=== PATIENT | male | born 1935 | race Caucasian/White ===

== ENCOUNTER 2017-07-13 11:03 | Outpatient (CLI) | payer MEDICARE, BC ==
[~2017-07-13 11:03] MED LIST: ASP325T PO; ASP81CT PO; ASPI1CPM PO; ATOR20TA66; ATR20T PO; CYAN10007 PO; FLAX100031 PO; LISINOPRIL; MULT-608 PO; SIMV5TAB6 PO
== END 2017-07-13 11:30 | disposition home or self-care (01) ==
LOC: SLEEP 11:03
PROVIDERS: ATTEND Otolaryngology Otolaryngology/Facial Plastic Surgery
DX: G47.33 Obstructive sleep apnea (adult) (pediatric) (principal); G47.10 Hypersomnia, unspecified; R06.83 Snoring

== ENCOUNTER 2017-09-16 13:34 | Inpatient (IN) | payer MEDICARE, BC ==
[2017-09-16] VITALS (9 sets, daily range): BP systolic 147–165; BP diastolic 55–72
[~2017-09-16] VITALS: Ht 170.2 cm; Wt 83.0 kg
[~2017-09-16 13:34] MED LIST changes: -ASPI-808 PO; -ATOR20TA66 PO; -FURO-125 PO; -MULT1CAP27 PO; -PANT40TA2 PO
[2017-09-16 14:09] LABS: BASOPHILS % (AUTO) 1 % (0-10); EOSINOPHILS # (AUTO) 0.1 10^3/uL (0.0-0.3); EOSINOPHILS % (AUTO) 1 % (0-10); LYMPHOCYTES # (AUTO) 0.8 X 10^3 (1.0-4.0); LYMPHOCYTES % (AUTO) 19 % (12-44); MEAN CORPUSCULAR HEMOGLOBIN 16 PG (25-34); MEAN CORPUSCULAR HGB CONC 24 G/DL (32-36); MEAN CORPUSCULAR VOLUME 68 FL (80-99); MONOCYTES # (AUTO) 0.5 X 10^3 (0.0-1.0); MONOCYTES % (AUTO) 11 % (0-12); NEUTROPHILS % (AUTO) 69 % (42-75); PLATELET COUNT 204 10^3/uL (130-400); RED BLOOD COUNT 2.92 10^6/uL (4.35-5.85); RED CELL DISTRIBUTION WIDTH 20.2 % (10.0-14.5); WHITE BLOOD COUNT 4.3 10^3/uL (4.3-11.0)
[2017-09-16] MEDS ORDERED: FUROSEMIDE 40 MG/4 ML INJ (LASIX) IVP ONE (14:15)
[2017-09-16 14:21] LABS: ALANINE AMINOTRANSFERASE 13 U/L (0-55); ALBUMIN 3.6 GM/DL (3.2-4.5); ALKALINE PHOSPHATASE 85 U/L (40-136); BILIRUBIN,TOTAL 1.3 MG/DL (0.1-1.0); BUN/CREATININE RATIO 16; CALCIUM 8.4 MG/DL (8.5-10.1); CARBON DIOXIDE 26 MMOL/L (21-32); CHLORIDE 105 MMOL/L (98-107); CREATININE SERUM 0.83 MG/DL (0.60-1.30); GFR ESTIMATED > 60; GLUCOSE 114 MG/DL (70-105); HEMATOCRIT 20 % (40-54); HEMOGLOBIN 4.7 G/DL (13.3-17.7); MAGNESIUM 2.1 MG/DL (1.8-2.4); POTASSIUM 4.2 MMOL/L (3.6-5.0); SODIUM 137 MMOL/L (135-145); TOTAL PROTEIN 6.2 GM/DL (6.4-8.2)
[2017-09-16 15:03] LABS: BASOPHILS % (AUTO) 1 % (0-10); EOSINOPHILS # (AUTO) 0.1 10^3/uL (0.0-0.3); EOSINOPHILS % (AUTO) 1 % (0-10); LYMPHOCYTES # (AUTO) 0.8 X 10^3 (1.0-4.0); LYMPHOCYTES % (AUTO) 19 % (12-44); MEAN CORPUSCULAR HEMOGLOBIN 16 PG (25-34); MEAN CORPUSCULAR HGB CONC 24 G/DL (32-36); MEAN CORPUSCULAR VOLUME 68 FL (80-99); MONOCYTES # (AUTO) 0.5 X 10^3 (0.0-1.0); MONOCYTES % (AUTO) 11 % (0-12); NEUTROPHILS % (AUTO) 69 % (42-75); PLATELET COUNT 204 10^3/uL (130-400); RED BLOOD COUNT 2.92 10^6/uL (4.35-5.85); RED CELL DISTRIBUTION WIDTH 20.2 % (10.0-14.5); WHITE BLOOD COUNT 4.3 10^3/uL (4.3-11.0)
[2017-09-16 15:04] LABS: HEMATOCRIT 20 % (40-54); HEMOGLOBIN 4.7 G/DL (13.3-17.7); RETICULOCYTE % 1.35 % (0.50-2.40)
[2017-09-16 15:05] LABS: ABSOLUTE RETIC # 38 10e9/L (24-90)
[2017-09-16 15:08] LABS: ANISOCYTOSIS SLIGHT; BAND NEUTROPHILS 0 %; BASOPHILS % (MANUAL) 1 %; ELLIPT/OVALOCYTES SLIGHT; EOSINOPHILS % (MANUAL) 3 %; HYPOCHROMASIA MARKED; LYMPHOCYTES % (MANUAL) 22 %; MICROCYTOSIS MODERATE; MONOCYTES % (MANUAL) 3 %; NEUTROPHILS % (MANUAL) 71 %
--- NOTE | 2017-09-16 15:19 | Consultation-Cardiology ---
HPI-Cardiology Cardiology Consultation Date of Consultation 09/16/17 Date of Admission Time Seen by Provider: 15:14 Indication: Short of breath, edema HPI 81 years old gentleman with history of hypertension, hyperlipidemia and TIA. Has been having worsening pedal edema and shortness of breath which has been progressive over the past 2 days. Had an echocardiogram done earlier today then went straight to the emergency room for evaluation for anasarca, significant edema and shortness of breath. Denied any chest pain. Denied any palpitation, syncope or near syncopal episode, he was noted to be severely anemic. Does not recall having diarrhea or black tarry stool or hematemesis Home Medications & Allergies Allergies: Coded Allergies: NKANo Known Allergies (Verified Allergy, Unknown, 08/31/05) Home Medication List Reviewed: Yes ULM-[id number]-Vpttvu Hx Patient Social History Marital Status: Employed/Student: retired Alcohol Use: Denies Use Recreational Drug Use: No Smoking Status: Never a Smoker Recent Foreign Travel: No Recent Infectious Disease Expo: No Recent Hopitalizations: Yes (CAROTID SURG) Immunizations Up To Date Date of Pneumonia Vaccine: May 17, 2009 Date of Influenza Vaccine: Mar 17, 2013 Past Medical History Past medical history as discussed below Family Medical History Significant Family History: No Pertinent Family Hx Family History: Alcoholism 03 FATHER 09 BROTHER Cancer 03 MOTHER Cataract 03 FATHER 03 MOTHER 09 BROTHER 09 SISTER 09 SISTER Chest pain 03 FATHER Family history: Arthritis 03 FATHER Family history: Glaucoma 03 MOTHER Heart disease 03 FATHER Hypercholesterolemia 09 BROTHER Kidney disease 03 FATHER No Family History of: Abdominal aortic aneurysm [place]'s disease Aphasia Cancer of colon Congenital heart disease Congestive heart failure Cystic fibrosis Dementia Dysphagia Family history: Allergy Family history: Alzheimer's disease Family history: Asthma Family history: Breast disease Family history: Cardiovascular disease Family history: Coronary thrombosis Family history: Diabetes mellitus Family history: Gastrointestinal disease Family history: Hypertension Family history: Osteoporosis Family history: Thyroid disorder Headache Hearing loss Hereditary disease History of - anemia History of - disorder History of - respiratory disease History of drug abuse Human immunodeficiency virus (HIV) seropositivity Infertile Malignant neoplasm of lung Myocardial infarction Parkinson's disease Prostate cancer Psychotic disorder Seizure disorder Stroke Tuberculosis Visual impairment Constitutional: see HPI, dizziness, malaise, weakness EENTM: see HPI, no symptoms reported Respiratory: see HPI, dyspnea on exertion, orthopnea, short of breath, wheezing Cardiovascular: see HPI; No chest pain; edema; No Hx of Intervention, No palpitations, No syncope, No vascular heart diseas, No other Gastrointestinal: see HPI, other (Increasing abdominal distention) Genitourinary: see HPI, decreased output Musculoskeletal: no symptoms reported, see HPI Skin: no symptoms reported, see HPI Psychiatric/Neurological: No Symptoms Reported, See HPI Reviewed Test Results Reviewed Test Results Lab Laboratory Tests Test 09/16/17 13:49 09/16/17 14:45 Range/Units White Blood Count 4.3 4.3 4.3-11.0 10^3/uL Red Blood Count 2.92 L 2.92 L 4.35-5.85 10^6/uL Hemoglobin 4.7 *L 4.7 *L 13.3-17.7 G/DL Hematocrit 20 *L 20 *L 40-54 % Mean Corpuscular Volume 68 L 68 L 80-99 FL Mean Corpuscular Hemoglobin 16 L 16 L 25-34 PG Mean Corpuscular Hemoglobin Concent 24 L 24 L 32-36 G/DL Red Cell Distribution Width 20.2 H 20.2 H 10.0-14.5 % Platelet Count 204 204 130-400 10^3/uL Mean Platelet Volume 10.0 10.0 7.4-10.4 FL Neutrophils (%) (Auto) 69 69 42-75 % Lymphocytes (%) (Auto) 19 19 12-44 % Monocytes (%) (Auto) 11 11 0-12 % Eosinophils (%) (Auto) 1 1 0-10 % Basophils (%) (Auto) 1 1 0-10 % Neutrophils # (Auto) 3.0 3.0 1.8-7.8 X 10^3 Lymphocytes # (Auto) 0.8 L 0.8 L 1.0-4.0 X 10^3 Monocytes # (Auto) 0.5 0.5 0.0-1.0 X 10^3 Eosinophils # (Auto) 0.1 0.1 0.0-0.3 10^3/uL Basophils # (Auto) 0.0 0.0 0.0-0.1 10^3/uL Sodium Level 137 135-145 MMOL/L Potassium Level 4.2 3.6-5.0 MMOL/L Chloride Level 105 98-107 MMOL/L Carbon Dioxide Level 26 21-32 MMOL/L Anion Gap 6 5-14 MMOL/L Blood Urea Nitrogen 13 7-18 MG/DL Creatinine 0.83 0.60-1.30 MG/DL Estimat Glomerular Filtration Rate > 60 BUN/Creatinine Ratio 16 Glucose Level 114 H 70-105 MG/DL Calcium Level 8.4 L 8.5-10.1 MG/DL Magnesium Level 2.1 1.8-2.4 MG/DL Total Bilirubin 1.3 H 0.1-1.0 MG/DL Aspartate Amino Transf (AST/SGOT) 19 5-34 U/L Alanine Aminotransferase (ALT/SGPT) 13 0-55 U/L Alkaline Phosphatase 85 40-136 U/L Troponin I < 0.30 <0.30 NG/ML B-Type Natriuretic Peptide 505.4 H <100.0 PG/ML Total Protein 6.2 L 6.4-8.2 GM/DL Albumin 3.6 3.2-4.5 GM/DL Neutrophils % (Manual) 71 % Lymphocytes % (Manual) 22 % Monocytes % (Manual) 3 % Eosinophils % (Manual) 3 % Basophils % (Manual) 1 % Band Neutrophils 0 % Hypochromasia MARKED Anisocytosis SLIGHT Microcytosis MODERATE Elliptocytes SLIGHT Absolute Reticulocyte Count 38 24-90 10e9/L Percent Reticulocyte Count 1.35 0.50-2.40 % Physical Exam Vital Signs Vital Signs - First Documented 09/16/17 13:34 Temp 97.6 Pulse 98 Resp 18 B/P (MAP) 104/63 (77) Pulse Ox 94 O2 Delivery Room Air Capillary Refill : Less Than 3 Seconds General Appearance: No Apparent Distress, WD/WN Eyes: Bilateral Eye Normal Inspection, Bilateral Eye PERRL, Bilateral Eye EOMI HEENT: PERRL/EOMI, TMs Normal, Normal ENT Inspection, Pharynx Normal Neck: Full Range of Motion, Normal Inspection, Non Tender, Supple, Carotid Bruit Respiratory: Crackles, Decreased Breath Sounds, Respiratory Distress, Rhonci, Wheezing Cardiovascular: Regular Rate, Rhythm, No JVD, Normal Peripheral Pulses, Gallop/ S3 Gastrointestinal: Normal Bowel Sounds, No Organomegaly, No Pulsatile Mass, Non Tender, Soft, Distended Back: Normal Inspection, No CVA Tenderness, No Vertebral Tenderness Extremity: Normal Capillary Refill, Normal Inspection, Normal Range of Motion, Non Tender, No Calf Tenderness Neurologic/Psychiatric: Alert, Oriented x3, No Motor/Sensory Deficits, Normal Mood/Affect, Other (Peripheral edema) Skin: Normal Color, Warm/Dry Lymphatic: No Adenopathy A/P-Cardiology Admission Diagnosis Anasarca Anemia Hypertension Hyperlipidemia Assessment/Plan Anasarca, significant edema that progressed recently. Elevated BNP, echocardiogram showed normal left ventricular systolic function, dilated right heart chambers and dilated inferior vena cava with pulmonary artery pressure of 45-50 mmHg. Started on diuretics. We'll monitor response Severe anemia, unknown etiology, microcytic anemia probably secondary to occult loss, evaluate stool for occult blood. Anemia analyzed and transfuse for now and monitor H&H History of TIA, full recovery. Patient was unable to tolerate Aggrenox. He was maintained on aspirin 325 mg daily. No other symptoms. Continue to monitor Carotid stenosis, history of carotid endarterectomy bilaterally, previously followed and monitored by Dr. Crowe. Last ultrasound was done December 2016 showing mild bilateral disease nonobstructive disease Hypertension, lisinopril was discontinued secondary to cough. Patient continues to have cough despite discontinuing medication. Continue to monitor at this time Hyperlipidemia, no recent lab work. Stress test done December 2014 revealed no ischemia or infarct, continue to monitor Anxiety. NAZ SOTO MD September 16, 2017 15:19
--- NOTE | 2017-09-16 15:23 | Diagnostic Imaging Report ---
INDICATION: Leg swelling and shortness of air. TIME OF EXAMINATION: 03:21 p.m. COMPARISON: Correlation is made to prior study from 06/01/2013. FINDINGS: The heart size is stable. Patient does have moderate bilateral pleural effusions. The pulmonary vascularity is normal. No pneumothorax is seen. IMPRESSION: Moderate bilateral pleural effusions with bibasilar atelectasis. Dictated by: Dictated on workstation # [id number]
--- NOTE | 2017-09-16 15:43 | History & Physical-Hospitalist ---
History of Present Illness HPI/Chief Complaint Pt is a 81yoCM with a PMH of HTN and TIA who presented to the ER for acute onset dizziness. He reports his symptoms started 3 weeks ago where he developed swelling in his lower extremities and he began to develop shortness of breath. His legs got so swollen he was unable get his pants up over his knees. He incidentally had an echo schedule for today and was here in the hospital to get it done when he developed acute onset dizziness and some numbness in his jaw which prompted him to seek evaluation in the ER. On presentation he was found to be very pale and found to have a hemoglobin of 4.7 and 2 units of pRBCs were ordered. He reports he occasionally has dark stools but has never noticed any black stools. He denies any hematemesis, hematuria, and hemoptysis. He denies any chest pain. His has noticed that he has looked very pale. Source: patient Date Seen 09/16/17 Time Seen by Provider: 15:44 Attending Physician PCP Mango Ness DO Referring Physician Date of Admission Home Medications & Allergies Home Medications Reviewed patient Home Medication Reconciliation performed by pharmacy medication reconciliations school laboratory technician and/or nursing. Patients Allergies have been reviewed. Allergies Allergies Coded Allergies NKANo Known Allergies (Verified Allergy, Unknown, 08/31/05) Past Frvcjem-Dmtfsr-Mawdwf Hx Past Med/Social Hx: Reviewed Nursing Past Med/Soc Hx Patient Social History Marrital Status: Employed/Student: retired Alcohol Use: Denies Use Recreational Drug Use: No Smoking Status: Never a Smoker Recent Foreign Travel: No Contact w/other who traveled: No Recent Hopitalizations: Yes (CAROTID SURG) Recent Infectious Disease Expo: No Immunizations Up To Date Date of Pneumonia Vaccine: May 17, 2009 Date of Influenza Vaccine: Mar 17, 2013 Past Medical History Neurological: TIA Reproductive: No History of Blood Disorders: No Adverse Reaction to Blood Dey: No Family History Reviewed Nursing Family Hx Alcoholism 03 FATHER 09 BROTHER Cancer 03 MOTHER Cataract 03 FATHER 03 MOTHER 09 BROTHER 09 SISTER 09 SISTER Chest pain 03 FATHER Family history: Arthritis 03 FATHER Family history: Glaucoma 03 MOTHER Heart disease 03 FATHER Hypercholesterolemia 09 BROTHER Kidney disease 03 FATHER No Family History of: Abdominal aortic aneurysm Todd's disease Aphasia Cancer of colon Congenital heart disease Congestive heart failure Cystic fibrosis Dementia Dysphagia Family history: Allergy Family history: Alzheimer's disease Family history: Asthma Family history: Breast disease Family history: Cardiovascular disease Family history: Coronary thrombosis Family history: Diabetes mellitus Family history: Gastrointestinal disease Family history: Hypertension Family history: Osteoporosis Family history: Thyroid disorder Headache Hearing loss Hereditary disease History of - anemia History of - disorder History of - respiratory disease History of drug abuse Human immunodeficiency virus (HIV) seropositivity Infertile Malignant neoplasm of lung Myocardial infarction Parkinson's disease Prostate cancer Psychotic disorder Seizure disorder Stroke Tuberculosis Visual impairment Review of Systems Constitutional: No chills; dizziness; No fever, No weakness; weight gain EENTM: No blurred vision, No double vision, No nose congestion, No throat pain Respiratory: No cough; dyspnea on exertion, orthopnea, short of breath Cardiovascular: No chest pain; edema; No palpitations Gastrointestinal: No abdominal pain, No constipation, No diarrhea, No dysphagia , No hematemesis, No jaundice, No melena, No nausea, No vomiting Genitourinary: No dysuria, No frequency, No hematuria; hesitancy Musculoskeletal: No joint pain, No muscle pain Skin: change in color (pallor); No lesions, No rash Psychiatric/Neurological: Denies Headache, Denies Numbness, Denies Tingling All Other Systems Reviewed Negative Unless Noted: Yes (Negative excepted noted.) Physical Exam Physical Exam Vital Signs Vital Signs - First Documented 09/16/17 13:34 Temp 97.6 Pulse 98 Resp 18 B/P (MAP) 104/63 (77) Pulse Ox 94 O2 Delivery Room Air Capillary Refill : Less Than 3 Seconds General Appearance: No Apparent Distress HEENT: PERRL/EOMI, Moist Mucous Membranes; No Scleral Icterus (L), No Scleral Icterus (R) Neck: Normal Inspection, Supple; No Thyromegaly Respiratory: Lungs Clear, No Respiratory Distress Cardiovascular: Regular Rate, Rhythm, No Murmur Gastrointestinal: Normal Bowel Sounds, Non Tender, Soft, Distended Extremity: Non Tender, Swelling (4+ pitting edema to thighs, upper extremities with 1+ pitting edema) Neurologic/Psychiatric: Alert, Oriented x3, No Motor/Sensory Deficits, Normal Mood/Affect Skin: Pallor; No Pet[place]ia Results Results/Procedures Labs Laboratory Tests 09/16/17 13:49 09/16/17 14:45 09/17/17 00:55 09/17/17 04:35 Patient resulted labs reviewed. Imaging: Reviewed Imaging Report Assessment/Plan Admission Diagnosis Severe Anemia Admission Status: Inpatient Order (span 2 midnights) Reason for Inpatient Admission: severe anemia Diagnosis/Problems Diagnosis/Problems (1) Microcytic anemia Status: Acute Assessment & Plan: Profound anemia T&S I called Dr Ness's office and no previous hemoglobin on file Last H&H 4 years ago here and normal 2 units pRBCs ordered in ER 2 units on hold Occult blood ordered Hold ASA Surgery consulted, appreciate recs Pt reports last colonoscopy 3-4 years ago- he believes to be normal (2) Anasarca Status: Acute Assessment & Plan: Continue Lasix Consider CT/Abd/Pelvis (3) Transient ischemic attack Status: Acute Assessment & Plan: s/p CEA Hold ASA SALLIE PORRAS MD September 16, 2017 15:43
--- NOTE | 2017-09-16 16:04 | ED General ---
General Chief Complaint: Respiratory Problems Stated Complaint: DIZZY,SOB,NUMB RIGHT JAW SIDE Nursing Triage Note: TO ROOM WITH C/O SWELLING IN LEGS. AND FEELING SOA X3 DAYS Nursing Sepsis Screen: No Definite Risk Source of Information: Patient, Family, Other (Dr. Ibrahim) Exam Limitations: No Limitations History of Present Illness Date Seen by Provider: September 16, 2017 Time Seen by Provider: 13:49 Initial Comments This 82-year-old gentleman presents to the emergency room today with complaints of dizziness, shortness of breath, diffuse edema, scrotal swelling, and a sensation of numbness on the right jaw. Patient had an echocardiogram performed today and felt so bad after that procedure that he came to the emergency room. He denies any chest pain, fever, cough, or other symptoms of acute illness. He has no history of congestive heart failure. Allergies and Home Medications Allergies Coded Allergies: JARENANo Known Allergies (Verified Allergy, Unknown, 08/31/05) Home Medications Aspirin 81 Mg Chew, 81 MG PO DAILY Prescribed by: RACHAEL LYLES on 06/02/13 1705 Atorvastatin 20 Mg Tablet, 1 EACH PO DAILY, (Reported) Cyanocobalamin 1,000 Mcg Tablet.sa, 1,000 MCG PO DAILY, (Reported) Flaxseed Oil 1,000 Mg Capsule, 1,000 MG PO weekly, (Reported) Multivitamins 1 Tab Tablet, 1 TAB PO DAILY, (Reported) Patient Home Medication List Home Medication List Reviewed: Yes Review of Systems Constitutional: dizziness, weakness EENTM: see HPI Respiratory: see HPI Cardiovascular: see HPI Gastrointestinal: no symptoms reported; No abdominal pain, No diarrhea, No hematemesis, No melena Genitourinary: no symptoms reported Musculoskeletal: no symptoms reported Skin: no symptoms reported Psychiatric/Neurological: See HPI Hematologic/Lymphatic: No Symptoms Reported Immunological/Allergic: no symptoms reported Past Ngilmcf-Jxndzj-Ktkwlo Hx Past Med/Social Hx: Reviewed Nursing Past Med/Soc Hx Patient Social History Alcohol Use: Denies Use Recreational Drug Use: No Smoking Status: Never a Smoker Recent Foreign Travel: No Contact w/Someone Who Travel: No Recent Infectious Disease Expo: No Recent Hopitalizations: Yes (CAROTID SURG) Immunizations Up To Date Date of Pneumonia Vaccine: May 17, 2009 Date of Influenza Vaccine: Mar 17, 2013 Past Medical History Surgeries: Yes (BILAT CAROTIDS Dr Alvarez) Vascular Surgery Respiratory: No Cardiac: Yes Peripheral Vascular (Carotid artery stenosis) Neurological: Yes TIA Reproductive Disorders: No Gastrointestinal: No Musculoskeletal: Yes Endocrine: No HEENT: No Cancer: No Psychosocial: Yes Integumentary: No Blood Disorders: No Adverse Reaction/Blood Tranf: No Family Medical History Reviewed Nursing Family Hx Alcoholism 03 FATHER 09 BROTHER Cancer 03 MOTHER Cataract 03 FATHER 03 MOTHER 09 BROTHER 09 SISTER 09 SISTER Chest pain 03 FATHER Family history: Arthritis 03 FATHER Family history: Glaucoma 03 MOTHER Heart disease 03 FATHER Hypercholesterolemia 09 BROTHER Kidney disease 03 FATHER No Family History of: Abdominal aortic aneurysm [place]ridge's disease Aphasia Cancer of colon Congenital heart disease Congestive heart failure Cystic fibrosis Dementia Dysphagia Family history: Allergy Family history: Alzheimer's disease Family history: Asthma Family history: Breast disease Family history: Cardiovascular disease Family history: Coronary thrombosis Family history: Diabetes mellitus Family history: Gastrointestinal disease Family history: Hypertension Family history: Osteoporosis Family history: Thyroid disorder Headache Hearing loss Hereditary disease History of - anemia History of - disorder History of - respiratory disease History of drug abuse Human immunodeficiency virus (HIV) seropositivity Infertile Malignant neoplasm of lung Myocardial infarction Parkinson's disease Prostate cancer Psychotic disorder Seizure disorder Stroke Tuberculosis Visual impairment Physical Exam Vital Signs Vital Signs - First Documented 09/16/17 13:34 Temp 97.6 Pulse 98 Resp 18 B/P (MAP) 104/63 (77) Pulse Ox 94 O2 Delivery Room Air Capillary Refill : Less Than 3 Seconds General Appearance: WD/WN, Mild Distress HEENT: PERRL/EOMI, Normal ENT Inspection, Pharynx Normal Neck: Normal Inspection Respiratory: Lungs Clear, No Accessory Muscle Use, No Respiratory Distress, Decreased Breath Sounds Cardiovascular: Regular Rate, Rhythm, No Murmur, Other (Pitting anasarca) Gastrointestinal: Normal Bowel Sounds, Non Tender, Distended (From anasarca) Extremity: Pedal Edema, Swelling Neurologic/Psychiatric: Alert, Oriented x3, No Motor/Sensory Deficits, Normal Mood/Affect, die casting machine setter II-XII Norm as Tested Skin: Normal Color, Warm/Dry Progress/Results/Core Measures Suspected Sepsis Recent Fever Within 48 Hours: No Infection Criteria Present: None New/Unexplained Altered Menta: No Sepsis Screen: No Definite Risk SIRS Temperature:97.6 Pulse: 98 Respiratory Rate: 18 Laboratory Tests 09/16/17 13:49: White Blood Count 4.3 09/16/17 14:45: White Blood Count 4.3 09/17/17 04:35: White Blood Count 5.8 Blood Pressure 104 /63 Mean: 77 Laboratory Tests 09/16/17 13:49: Creatinine 0.83, Platelet Count 204, Total Bilirubin 1.3H 09/16/17 14:45: Platelet Count 204 09/17/17 04:35: Creatinine 0.90, Platelet Count 193, INR Comment 1.3 Results/Orders Lab Results Laboratory Tests Test 09/16/17 13:49 09/16/17 14:45 09/17/17 00:55 09/17/17 04:35 Range/Units White Blood Count 4.3 4.3 5.8 4.3-11.0 10^3/uL Red Blood Count 2.92 L 2.92 L 3.43 L 4.35-5.85 10^6/uL Hemoglobin 4.7 *L 4.7 *L 6.7 #*L 6.6 *L 13.3-17.7 G/DL Hematocrit 20 *L 20 *L 24 L 24 L 40-54 % Mean Corpuscular Volume 68 L 68 L 71 L 80-99 FL Mean Corpuscular Hemoglobin 16 L 16 L 19 L 25-34 PG Mean Corpuscular Hemoglobin Concent 24 L 24 L 27 L 32-36 G/DL Red Cell Distribution Width 20.2 H 20.2 H 23.0 H 10.0-14.5 % Platelet Count 204 204 193 130-400 10^3/uL Mean Platelet Volume 10.0 10.0 9.9 7.4-10.4 FL Neutrophils (%) (Auto) 69 69 67 42-75 % Lymphocytes (%) (Auto) 19 19 21 12-44 % Monocytes (%) (Auto) 11 11 9 0-12 % Eosinophils (%) (Auto) 1 1 3 0-10 % Basophils (%) (Auto) 1 1 1 0-10 % Neutrophils # (Auto) 3.0 3.0 3.9 1.8-7.8 X 10^3 Lymphocytes # (Auto) 0.8 L 0.8 L 1.2 1.0-4.0 X 10^3 Monocytes # (Auto) 0.5 0.5 0.5 0.0-1.0 X 10^3 Eosinophils # (Auto) 0.1 0.1 0.2 0.0-0.3 10^3/uL Basophils # (Auto) 0.0 0.0 0.0 0.0-0.1 10^3/uL Sodium Level 137 138 135-145 MMOL/L Potassium Level 4.2 3.8 3.6-5.0 MMOL/L Chloride Level 105 104 98-107 MMOL/L Carbon Dioxide Level 26 24 21-32 MMOL/L Anion Gap 6 10 5-14 MMOL/L Blood Urea Nitrogen 13 12 7-18 MG/DL Creatinine 0.83 0.90 0.60-1.30 MG/DL Estimat Glomerular Filtration Rate > 60 > 60 BUN/Creatinine Ratio 16 13 Glucose Level 114 H 94 70-105 MG/DL Calcium Level 8.4 L 8.4 L 8.5-10.1 MG/DL Magnesium Level 2.1 1.8-2.4 MG/DL Total Bilirubin 1.3 H 0.1-1.0 MG/DL Aspartate Amino Transf (AST/SGOT) 19 5-34 U/L Alanine Aminotransferase (ALT/SGPT) 13 0-55 U/L Alkaline Phosphatase 85 40-136 U/L Troponin I < 0.30 <0.30 NG/ML B-Type Natriuretic Peptide 505.4 H <100.0 PG/ML Total Protein 6.2 L 6.4-8.2 GM/DL Albumin 3.6 3.2-4.5 GM/DL Neutrophils % (Manual) 71 % Lymphocytes % (Manual) 22 % Monocytes % (Manual) 3 % Eosinophils % (Manual) 3 % Basophils % (Manual) 1 % Band Neutrophils 0 % Hypochromasia MARKED Anisocytosis SLIGHT Microcytosis MODERATE Elliptocytes SLIGHT Absolute Reticulocyte Count 38 24-90 10e9/L Percent Reticulocyte Count 1.35 0.50-2.40 % Prothrombin Time 16.2 H 12.2-14.7 SEC INR Comment 1.3 0.8-1.4 My Orders Orders - MAGDALENA LINCOLN MD BNP (09/16/17 14:03) Cbc With Automated Diff (09/16/17 14:03) Comprehensive Metabolic Panel (09/16/17 14:03) Magnesium (09/16/17 14:03) Troponin I (09/16/17 14:03) Chest Pa/Lat (2 View) (09/16/17 14:03) Saline Lock/Iv-Start (09/16/17 14:03) Ekg Tracing (09/16/17 14:03) Monitor-Rhythm Ecg Trace Only (09/16/17 14:03) Furosemide Injection (Lasix Injection) (09/16/17 14:15) Red Cells Leukocytes Reduced (09/16/17 14:21) Type And Screen (09/16/17 14:21) Anemia Analyzer (09/16/17 14:37) Bladder Scan (09/16/17 14:55) Medications Given in ED Vital Signs/I&O 09/16/17 09/16/17 09/16/17 09/17/17 21:25 21:40 23:51 00:00 Temp 99.6 99.4 99.2 99.2 Pulse 92 90 92 92 Resp 18 18 18 B/P (MAP) 157/55 160/66 147/67 147/67 (93) Pulse Ox 92 92 O2 Delivery Room Air Room Air Room Air Room Air 09/17/17 09/17/17 09/17/17 01:00 03:28 04:00 Temp 98.7 Pulse 91 96 Resp 17 B/P (MAP) 107/53 (71) Pulse Ox 91 94 O2 Delivery Room Air Room Air Capillary Refill : Less Than 3 Seconds Blood Pressure Mean: 77 Point of Care Testing Fecal Occult: Positive Progress Note : Progress Note Patient was found to have severe anemia. The exact cause was uncertain. An anemia panel was ordered. A type and cross for transfusion of 2 units with 2 units to hold was ordered. Echocardiogram results were reviewed with Dr. Ibrahim. No etiology for the anasarca was determined from echo. Intravascular volume was determined to be high based on echo results. 0Diuresis therapy with Lasix 40 mg IV was initiated in the ER. He had immediate results with output of at least 800 mL of urine shortly after starting Lasix therapy. Dr. Jang was consulted and also saw the patient in the emergency room. Digital rectal exam revealed heme positive stool. Diagnostic Imaging Diagonstic Imaging: Xray Plain Films/CT/US/NM/MRI: chest Comments NAME: NICHOLAS FRANCOIS [facility] REC#: [id number] PT STATUS: REG ER : 1935 PHYSICIAN: MAGDALENA LINCOLN MD ADMIT DATE: 09/16/17/ER Signed Date of Exam: 09/16/17 CHEST PA/LAT (2 VIEW) INDICATION: Leg swelling and shortness of air. TIME OF EXAMINATION: 03:21 p.m. COMPARISON: Correlation is made to prior study from 06/01/2013. FINDINGS: The heart size is stable. Patient does have moderate bilateral pleural effusions. The pulmonary vascularity is normal. No pneumothorax is seen. IMPRESSION: Moderate bilateral pleural effusions with bibasilar atelectasis. Dictated by: Dictated on workstation # [id number] Dict: 09/16/17 1518 Trans: 09/16/17 1532 Interpreted by: YAMILET FELTON MD Electronically signed by: YAMILET FELTON MD 09/16/17 1532 Departure Communication (Admissions) Dr. Manohar Ibrahim and Dr. Jang Impression Primary Impression: Severe anemia Additional Impressions: Anasarca Heme positive stool Disposition: ADMITTED INPATIENT Condition: Improved Admissions Decision to Admit Reason: Admit from ER (General) Decision to Admit/Date: September 17, 2017 Time/Decision to Admit Time: 14:15 Departure-Patient Inst. Referrals: ERICKA ROMO DO (PCP/Family) Primary Care Physician MAGDALENA LINCOLN MD September 16, 2017 16:04
[2017-09-16] MEDS ORDERED: MELATONIN 3 MG TABLET PO PRN (16:15)
[2017-09-16] MEDS ORDERED: ONDANSETRON 4 MG/2 ML (SDV) Z0FRAN IV PRN (16:15)
[2017-09-16] MEDS ORDERED: CATHETER FLUSH 10 ML SYR IV PRN (16:30)
[2017-09-16] MEDS ORDERED: NS IV 500 ML 500 ML IV PRN (16:45)
[2017-09-16] MEDS ORDERED: NS IV 500 ML 500 ML ONE (16:50)
[2017-09-16] MEDS ORDERED: RT-ALBUTEROL/IPRATROPIUM 3 ML (DUONEB) VIAL INH PRN (19:00)
[2017-09-16] MEDS: RT-ALBUTEROL/IPRATROPIUM 3 ML (DUONEB) VIAL INH SCH (19:03)
[2017-09-16] MEDS: PANTOPRAZOLE 40 MG/10 ML (PROTONIX) VIAL IV SCH (20:23)
[2017-09-16] MEDS: CATHETER FLUSH 10 ML SYR IV SCH (20:24)
--- NOTE | 2017-09-16 21:53 | Consultation ---
History of Present Illness History of Present Illness Patient Consulted On(renetta/time) 09/16/17 21:45 Date Seen by Provider: September 16, 2017 Time Seen by Provider: 16:00 Reason for Visit: Short of breath, edema History of Present Illness Consult requested by Dr. Ibrahim for anemia Patient is an 81 year old male who hasn't been feeling well about 3 weeks. He has felt weak and having some shortness of breath. He has had lower body including penis and scrotum with significant swelling. Patient states his overall condition has continued to worsen. He was found to have a hgb of 4.7 when being evaluated. Patient states his last colonoscopy was about 4-5 years ago. He has not noticed any black or tarry stools. He denies any abdominal pain. Allergies and Home Medications Allergies Coded Allergies: NKANo Known Allergies (Verified Allergy, Unknown, 08/31/05) Home Medications Aspirin 81 Mg Chew, 81 MG PO DAILY Prescribed by: RACHAEL LYLES on 06/02/13 1705 Atorvastatin 20 Mg Tablet, 1 EACH PO DAILY, (Reported) Cyanocobalamin 1,000 Mcg Tablet.sa, 1,000 MCG PO DAILY, (Reported) Flaxseed Oil 1,000 Mg Capsule, 1,000 MG PO weekly, (Reported) Multivitamins 1 Tab Tablet, 1 TAB PO DAILY, (Reported) Patient Home Medication List Home Medication List Reviewed: Yes Past Oktboxt-Beaafv-Bimvxu Hx Patient Social History Alcohol Use: Denies Use Recreational Drug Use: No Smoking Status: Never a Smoker Recent Foreign Travel: No Contact w/Someone Who Travel: No Recent Infectious Disease Expo: No Recent Hopitalizations: Yes (CAROTID SURG) Physical Abuse Screen: No Sexual Abuse: No Immunizations Up To Date PED Vaccines UTD: Yes Date of Pneumonia Vaccine: May 17, 2009 Date of Influenza Vaccine: Mar 17, 2013 Surgeries History of Surgeries: Yes (BILAT CAROTIDS Dr Alvarez) Respiratory History of Respiratory Disorde: No Cardiovascular History of Cardiac Disorders: Yes (past HTN) Neurological History of Neurological Disord: Yes Neurological Disorders: TIA Reproductive System Hx Reproductive Disorders: No Genitourinary History of Genitourinary Disor: Yes Genitourinary Disorders: Kidney Stones Gastrointestinal History of Gastrointestinal Di: No Musculoskeletal History of Musculoskeletal Dis: Yes Musculoskeletal Disorders: Arthritis Endocrine History of Endocrine Disorders: No HEENT History of HEENT Disorders: No Cancer History of Cancer: No Psychosocial History of Psychiatric Problem: Yes Integumentary History of Skin or Integumenta: No Blood Transfusions History of Blood Disorders: No Adverse Reaction to a Blood Tr: No Family Medical History Significant Family History: No Pertinent Family Hx Family Medial History: Alcoholism 03 FATHER 09 BROTHER Cancer 03 MOTHER Cataract 03 FATHER 03 MOTHER 09 BROTHER 09 SISTER 09 SISTER Chest pain 03 FATHER Family history: Arthritis 03 FATHER Family history: Glaucoma 03 MOTHER Heart disease 03 FATHER Hypercholesterolemia 09 BROTHER Kidney disease 03 FATHER No Family History of: Abdominal aortic aneurysm Alexander's disease Aphasia Cancer of colon Congenital heart disease Congestive heart failure Cystic fibrosis Dementia Dysphagia Family history: Allergy Family history: Alzheimer's disease Family history: Asthma Family history: Breast disease Family history: Cardiovascular disease Family history: Coronary thrombosis Family history: Diabetes mellitus Family history: Gastrointestinal disease Family history: Hypertension Family history: Osteoporosis Family history: Thyroid disorder Headache Hearing loss Hereditary disease History of - anemia History of - disorder History of - respiratory disease History of drug abuse Human immunodeficiency virus (HIV) seropositivity Infertile Malignant neoplasm of lung Myocardial infarction Parkinson's disease Prostate cancer Psychotic disorder Seizure disorder Stroke Tuberculosis Visual impairment Review of Systems-General Constitutional: see HPI EENTM: no symptoms reported Respiratory: see HPI, short of breath Cardiovascular: no symptoms reported Gastrointestinal: no symptoms reported Genitourinary: no symptoms reported Musculoskeletal: no symptoms reported Skin: no symptoms reported Psychiatric/Neurological: No Symptoms Reported Physical Exam-General Problems Physical Exam Vital Signs Vital Signs - First Documented 09/16/17 13:34 Temp 97.6 Pulse 98 Resp 18 B/P (MAP) 104/63 (77) Pulse Ox 94 O2 Delivery Room Air Capillary Refill : Less Than 3 Seconds General Appearance: no apparent distress HEENT: PERRL/EOMI, normal ENT inspection Neck: supple, normal inspection Respiratory: no respiratory distress, no accessory muscle use Cardiovascular: regular rate, rhythm Gastrointestinal: non tender, soft Rectal: normal exam, normal rectal tone, heme positive stool Genital/Rectal: other (swelling of penis and scrotum) Back: normal inspection Extremities: swelling (lower body ) Neurologic/Psychiatric: application lead II-XII nml as tested, no motor/sensory deficits, alert, normal mood/affect, oriented x 3 Skin: pallor Lymphatic: no adenopathy Data Review Labs Laboratory Tests 09/16/17 13:49: White Blood Count 4.3, Red Blood Count 2.92L, Hemoglobin 4.7*L, Hematocrit 20*L , Mean Corpuscular Volume 68L, Mean Corpuscular Hemoglobin 16L, Mean Corpuscular Hemoglobin Concent 24L, Red Cell Distribution Width 20.2H, Platelet Count 204, Mean Platelet Volume 10.0, Neutrophils (%) (Auto) 69, Lymphocytes (% ) (Auto) 19, Monocytes (%) (Auto) 11, Eosinophils (%) (Auto) 1, Basophils (%) ( Auto) 1, Neutrophils # (Auto) 3.0, Lymphocytes # (Auto) 0.8L, Monocytes # (Auto ) 0.5, Eosinophils # (Auto) 0.1, Basophils # (Auto) 0.0, Sodium Level 137, Potassium Level 4.2, Chloride Level 105, Carbon Dioxide Level 26, Anion Gap 6, Blood Urea Nitrogen 13, Creatinine 0.83, Estimat Glomerular Filtration Rate > 60 , BUN/Creatinine Ratio 16, Glucose Level 114H, Calcium Level 8.4L, Magnesium Level 2.1, Total Bilirubin 1.3H, Aspartate Amino Transf (AST/SGOT) 19, Alanine Aminotransferase (ALT/SGPT) 13, Alkaline Phosphatase 85, Troponin I < 0.30, B- Type Natriuretic Peptide 505.4H, Total Protein 6.2L, Albumin 3.6 09/16/17 14:45: White Blood Count 4.3, Red Blood Count 2.92L, Hemoglobin 4.7*L, Hematocrit 20*L , Mean Corpuscular Volume 68L, Mean Corpuscular Hemoglobin 16L, Mean Corpuscular Hemoglobin Concent 24L, Red Cell Distribution Width 20.2H, Platelet Count 204, Mean Platelet Volume 10.0, Neutrophils (%) (Auto) 69, Lymphocytes (% ) (Auto) 19, Monocytes (%) (Auto) 11, Eosinophils (%) (Auto) 1, Basophils (%) ( Auto) 1, Neutrophils # (Auto) 3.0, Lymphocytes # (Auto) 0.8L, Monocytes # (Auto ) 0.5, Eosinophils # (Auto) 0.1, Basophils # (Auto) 0.0, Neutrophils % (Manual) 71, Lymphocytes % (Manual) 22, Monocytes % (Manual) 3, Eosinophils % (Manual) 3 , Basophils % (Manual) 1, Band Neutrophils 0, Hypochromasia MARKED, Anisocytosis SLIGHT, Microcytosis MODERATE, Elliptocytes SLIGHT, Absolute Reticulocyte Count 38, Percent Reticulocyte Count 1.35 Assessment/Plan Assessment/Plan Assessment/Plan anemia with hgb 4.7 shortness of breath anasarca occult positive stool PRBC ordered for transfusion Protonix BID Follow Hgb and transfuse PRBC PRN would recommend EGD and Colonoscopy to be done inpatient vs outpatient Clear liquids. Will follow. Clinical Quality Measures DVT/VTE Risk/Contraindication: Risk Factor Score Per Nursin RFS Level Per Nursing on Admit: 4+=Very High RAQUEL LEAL DO September 16, 2017 21:53
[2017-09-17] VITALS (9 sets, daily range): BP systolic 107–158; BP diastolic 53–70
[2017-09-17 01:13] LABS: HEMOGLOBIN 6.7 G/DL (13.3-17.7)
[2017-09-17] MEDS: RT-ALBUTEROL/IPRATROPIUM 3 ML (DUONEB) VIAL INH SCH ×4 (03:27→20:58)
[2017-09-17 05:03] LABS: BASOPHILS % (AUTO) 1 % (0-10); EOSINOPHILS # (AUTO) 0.2 10^3/uL (0.0-0.3); EOSINOPHILS % (AUTO) 3 % (0-10); HEMATOCRIT 24 % (40-54); LYMPHOCYTES # (AUTO) 1.2 X 10^3 (1.0-4.0); LYMPHOCYTES % (AUTO) 21 % (12-44); MEAN CORPUSCULAR HEMOGLOBIN 19 PG (25-34); MEAN CORPUSCULAR HGB CONC 27 G/DL (32-36); MEAN CORPUSCULAR VOLUME 71 FL (80-99); MEAN PLATELET VOLUME 9.9 FL (7.4-10.4); MONOCYTES # (AUTO) 0.5 X 10^3 (0.0-1.0); MONOCYTES % (AUTO) 9 % (0-12); NEUTROPHILS # (AUTO) 3.9 X 10^3 (1.8-7.8); NEUTROPHILS % (AUTO) 67 % (42-75); PLATELET COUNT 193 10^3/uL (130-400); RED BLOOD COUNT 3.43 10^6/uL (4.35-5.85); WHITE BLOOD COUNT 5.8 10^3/uL (4.3-11.0)
[2017-09-17 05:06] LABS: HEMOGLOBIN 6.6 G/DL (13.3-17.7)
[2017-09-17 05:18] LABS: INR 1.3 (0.8-1.4); PROTHROMBIN TIME PATIENT 16.2 SEC (12.2-14.7)
[2017-09-17 05:22] LABS: BUN/CREATININE RATIO 13; CALCIUM 8.4 MG/DL (8.5-10.1); CARBON DIOXIDE 24 MMOL/L (21-32); CHLORIDE 104 MMOL/L (98-107); GFR ESTIMATED > 60; GLUCOSE 94 MG/DL (70-105); POTASSIUM 3.8 MMOL/L (3.6-5.0); SODIUM 138 MMOL/L (135-145)
[2017-09-17] MEDS: PANTOPRAZOLE 40 MG/10 ML (PROTONIX) VIAL IV SCH ×2 (09:54→20:36)
[2017-09-17] MEDS: FUROSEMIDE 40 MG/4 ML INJ (LASIX) IVP SCH (09:54)
[2017-09-17] MEDS: CATHETER FLUSH 10 ML SYR IV SCH ×3 (09:54→20:36)
--- NOTE | 2017-09-17 10:00 | Progress Note-Hospitalist ---
Subjective HPI/CC On Admission Date Seen by Provider: September 17, 2017 Time Seen by Provider: 09:55 Pt is a 81yoCM with a PMH of HTN and TIA who presented to the ER for acute onset dizziness. He reports his symptoms started 3 weeks ago where he developed swelling in his lower extremities and he began to develop shortness of breath. His legs got so swollen he was unable get his pants up over his knees. He incidentally had an echo schedule for today and was here in the hospital to get it done when he developed acute onset dizziness and some numbness in his jaw which prompted him to seek evaluation in the ER. On presentation he was found to be very pale and found to have a hemoglobin of 4.7 and 2 units of pRBCs were ordered. He reports he occasionally has dark stools but has never noticed any black stools. He denies any hematemesis, hematuria, and hemoptysis. He denies any chest pain. His has noticed that he has looked very pale. Subjective/Events-last exam Pt reports feeling much better today. Less urination that yesterday. No more dizziness. Would like to walk. Objective Exam Vital Signs Vital Signs Date Time Temp Pulse Resp B/P (MAP) Pulse Ox O2 Delivery O2 Flow Rate FiO2 09/17/17 13:59 98.1 85 20 133/61 92 Room Air Capillary Refill : Less Than 3 Seconds General Appearance: No Apparent Distress, Chronically ill Respiratory: Lungs Clear, No Respiratory Distress Cardiovascular: Regular Rate, Rhythm, No Murmur Gastrointestinal: Normal Bowel Sounds, Non Tender, Soft Extremity: Swelling (3+ to calves bilaterally) Neurologic/Psychiatric: Alert, Oriented x3, Normal Mood/Affect Results/Procedures Lab Laboratory Tests 09/16/17 14:45 09/17/17 00:55 09/17/17 04:35 Patient resulted labs reviewed. Imaging: Reviewed Imaging Report Assessment/Plan Assessment and Plan Assess & Plan/Chief Complaint severe anemia Diagnosis/Problems Diagnosis/Problems (1) Microcytic anemia Status: Acute Assessment & Plan: Profound anemia- improving 2 units pRBCs given yesterday, remains tachycardiac so will transfuse 1 more unit Occult blood ordered Hold ASA Surgery consulted, appreciate recs Pt reports last colonoscopy 3-4 years ago- he believes to be normal Discussed with Dr Jang this AM, plan for scope early next week (2) Anasarca Status: Acute Assessment & Plan: Will get CT Abd/Pelvis Continue lasix (3) Transient ischemic attack Status: Acute Assessment & Plan: s/p CEA Hold ASA (4) Prophylactic measure Assessment & Plan: Saline lock SCDs only Reg diet Clinical Quality Measures DVT/VTE Risk/Contraindication: Risk Factor Score Per Nursin RFS Level Per Nursing on Admit: 4+=Very High SALLIE PORRAS MD September 17, 2017 10:00
--- NOTE | 2017-09-17 10:35 | Progress Note ---
Subjective Date Seen by Provider: September 17, 2017 Time Seen by Provider: 10:31 Subjective/Events-last exam Patient feeling better today. Has discomfort in lower body due to fluid. Hgb came up appropriately after 2 units. Denies n/v fever sweats chills shortness of breath or chest pain. Objective Exam Vital Signs Date Time Temp Pulse Resp B/P (MAP) Pulse Ox O2 Delivery O2 Flow Rate FiO2 09/17/17 10:05 92 Room Air 09/17/17 08:00 99.6 98 20 147/63 (91) 92 Room Air 09/17/17 04:00 98.7 96 17 107/53 (71) 94 Room Air 09/17/17 03:28 91 Room Air 09/17/17 01:00 91 09/17/17 00:00 99.2 92 18 147/67 (93) 92 Room Air 09/16/17 23:51 99.2 92 18 147/67 92 Room Air 09/16/17 21:40 99.4 90 160/66 Room Air 09/16/17 21:25 99.6 92 18 157/55 Room Air 09/16/17 20:00 99.3 92 16 162/72 95 Room Air 09/16/17 19:35 98.0 95 18 165/70 (101) 96 Room Air 09/16/17 19:04 97 Room Air 09/16/17 19:00 79 09/16/17 17:47 Room Air 09/16/17 17:32 98.4 80 18 147/62 95 Room Air 09/16/17 17:17 97.3 88 18 158/69 94 Room Air 09/16/17 17:06 85 94 09/16/17 16:30 97.3 88 18 158/65 (96) 94 Room Air 09/16/17 16:17 88 18 149/67 96 09/16/17 13:34 97.6 98 18 104/63 (77) 94 Room Air I & O 09/17/17 07:00 Intake Total 320 ml Output Total 1400 ml Balance -1080 ml Capillary Refill : Less Than 3 Seconds General Appearance: No Apparent Distress, Chronically ill HEENT: PERRL/EOMI, Normal ENT Inspection, Pharynx Normal Neck: Normal Inspection Respiratory: No Accessory Muscle Use, No Respiratory Distress Cardiovascular: Regular Rate, Rhythm, No Murmur, Tachycardia Gastrointestinal: non tender, soft Extremity: Swelling (3+ to calves bilaterally) Neurologic/Psychiatric: Alert, Oriented x3, Normal Mood/Affect Skin: Normal Color, Warm/Dry Lymphatic: No Adenopathy Results Lab Laboratory Tests 09/16/17 13:49: White Blood Count 4.3, Red Blood Count 2.92L, Hemoglobin 4.7*L, Hematocrit 20*L , Mean Corpuscular Volume 68L, Mean Corpuscular Hemoglobin 16L, Mean Corpuscular Hemoglobin Concent 24L, Red Cell Distribution Width 20.2H, Platelet Count 204, Mean Platelet Volume 10.0, Neutrophils (%) (Auto) 69, Lymphocytes (% ) (Auto) 19, Monocytes (%) (Auto) 11, Eosinophils (%) (Auto) 1, Basophils (%) ( Auto) 1, Neutrophils # (Auto) 3.0, Lymphocytes # (Auto) 0.8L, Monocytes # (Auto ) 0.5, Eosinophils # (Auto) 0.1, Basophils # (Auto) 0.0, Sodium Level 137, Potassium Level 4.2, Chloride Level 105, Carbon Dioxide Level 26, Anion Gap 6, Blood Urea Nitrogen 13, Creatinine 0.83, Estimat Glomerular Filtration Rate > 60 , BUN/Creatinine Ratio 16, Glucose Level 114H, Calcium Level 8.4L, Magnesium Level 2.1, Total Bilirubin 1.3H, Aspartate Amino Transf (AST/SGOT) 19, Alanine Aminotransferase (ALT/SGPT) 13, Alkaline Phosphatase 85, Troponin I < 0.30, B- Type Natriuretic Peptide 505.4H, Total Protein 6.2L, Albumin 3.6 09/16/17 14:45: White Blood Count 4.3, Red Blood Count 2.92L, Hemoglobin 4.7*L, Hematocrit 20*L , Mean Corpuscular Volume 68L, Mean Corpuscular Hemoglobin 16L, Mean Corpuscular Hemoglobin Concent 24L, Red Cell Distribution Width 20.2H, Platelet Count 204, Mean Platelet Volume 10.0, Neutrophils (%) (Auto) 69, Lymphocytes (% ) (Auto) 19, Monocytes (%) (Auto) 11, Eosinophils (%) (Auto) 1, Basophils (%) ( Auto) 1, Neutrophils # (Auto) 3.0, Lymphocytes # (Auto) 0.8L, Monocytes # (Auto ) 0.5, Eosinophils # (Auto) 0.1, Basophils # (Auto) 0.0, Neutrophils % (Manual) 71, Lymphocytes % (Manual) 22, Monocytes % (Manual) 3, Eosinophils % (Manual) 3 , Basophils % (Manual) 1, Band Neutrophils 0, Hypochromasia MARKED, Anisocytosis SLIGHT, Microcytosis MODERATE, Elliptocytes SLIGHT, Absolute Reticulocyte Count 38, Percent Reticulocyte Count 1.35 09/17/17 00:55: Hemoglobin 6.7#*L, Hematocrit 24L 09/17/17 04:35: White Blood Count 5.8, Red Blood Count 3.43L, Hemoglobin 6.6*L, Hematocrit 24L, Mean Corpuscular Volume 71L, Mean Corpuscular Hemoglobin 19L, Mean Corpuscular Hemoglobin Concent 27L, Red Cell Distribution Width 23.0H, Platelet Count 193, Mean Platelet Volume 9.9, Neutrophils (%) (Auto) 67, Lymphocytes (%) (Auto) 21, Monocytes (%) (Auto) 9, Eosinophils (%) (Auto) 3, Basophils (%) (Auto) 1, Neutrophils # (Auto) 3.9, Lymphocytes # (Auto) 1.2, Monocytes # (Auto) 0.5, Eosinophils # (Auto) 0.2, Basophils # (Auto) 0.0, Sodium Level 138, Potassium Level 3.8, Chloride Level 104, Carbon Dioxide Level 24, Anion Gap 10, Blood Urea Nitrogen 12, Creatinine 0.90, Estimat Glomerular Filtration Rate > 60, BUN/ Creatinine Ratio 13, Glucose Level 94, Calcium Level 8.4L, Prothrombin Time 16.2H, INR Comment 1.3 09/17/17 10:00: Stool Occult Blood Immunoassay NEGATIVE Assessment/Plan Assessment/Plan Assessment/Plan anemia shortness of breath anasarca occult positive stool PRBC 2 units increased appropriately going to get 1 more unit Protonix BID Follow Hgb and transfuse PRBC PRN would recommend EGD and Colonoscopy to be done inpatient vs outpatient Clear liquids. Will follow. Discussed with Dr. Villela and CT abd/pelvis to be done. Clinical Quality Measures DVT/VTE Risk/Contraindication: Risk Factor Score Per Nursin RFS Level Per Nursing on Admit: 4+=Very High RAQUEL LEAL DO September 17, 2017 10:35
--- NOTE | 2017-09-17 11:03 | Physical Therapy Evaluation ---
PT Evaluation-General Medical Diagnosis Admission Date September 16, 2017 at 16:10 Medical Diagnosis: fluid overload/anemia Onset Date: September 16, 2017 Therapy Diagnosis Therapy Diagnosis: debility Height/Weight Height (Feet): 5 Height (Inches): 7.00 Weight (Pounds): 193 Weight (Ounces): 9.6 Precautions Precautions/Isolations: Standard Precautions Weight Bear Status Right Lower Extremity: Right Weight Bearing/Tolerated Left Lower Extremity: Left Weight Bearing/Tolerated Referral Physician: Manohar Reason for Referral: Evaluation/Treatment Medical History Pertinent Medical History: HTN, PVD Additional Medical History TIA Current History ED with c/o dizziness, SOA, numb right jaw side, swelling bilateral LE Reviewed History: Yes Social History Home: Single Level Current Living Status: Spouse Prior/Core FIM Prior Level of Function Functional [place] Measure 0=Not Assessed/NA 4=Minimal Assistance 1=Total Assistance 5=Supervision or Setup 2=Maximal Assistance 6=Modified [place] 3=Moderate Assistance 7=Complete [place] Bed Mobility: 7 Transfers (B,C,W/C) (FIM): 7 Gait: 7 Locomotion: 7 PT Evaluation-Current Subjective Patient is very agreeable to participate with PT. Pain Numeric Pain Scale: 0-No Pain Location: No Pain Reported Objective Patient Orientation: Normal For Age Problem Solving: Good ROM/Strength ROM Lower Extremities bilateral LE WNL Strength Lower Extremities 5/5 bilateral LE grossly Integumentary/Posture Integumentary refer to nursing notes Bowel Incontinence: No Bladder Incontinence: No Posture normal Neuromuscular (Tone, Coordination, Reflexes) grossly intact with all Sensory Vision: Functional Hearing: Functional Sensation Right Lower Extremit: Intact Sensation Left Lower Extremity: Intact Transfers Functional [place] Measure 0=Not Assessed/NA 4=Minimal Assistance 1=Total Assistance 5=Supervision or Setup 2=Maximal Assistance 6=Modified [place] 3=Moderate Assistance 7=Complete [place] Transfers (B, C, W/C) (FIM): 7 Scootin Rollin Supine to/from Sit: 7 Sit to/from Stand: 7 Gait Mode of Locomotion: Walk Anticipated Mode of Locomotion: Walk Gait (FIM): 7 Distance (FIM): 3=150 ft Distance: 400' Gait Level of Assist: 7 Gait Assistive Device: None Comments/Gait Description normal, safe, functional gait sequence Balance Sitting Static: Normal Sitting Dynamic: Normal Standing Static: Normal Standing Dynamic: Normal Assessment/Needs 81 y.o. male, is currently independent PLOF with all gross motor skills and does not require skilled PT at this time. PT instructed patient to ambulate PRN in hallway. Rehab Potential: Good PT Plan Treatment/Plan Treatment Plan: Discontinue PT, goals met Treatment Plan: Other Treatment Duration: September 17, 2017 Frequency: 1 time per week Estimated Hrs Per Day: .25 hour per day Patient and/or Family Agrees t: Yes Time/GCodes Time In: 1040 Time Out: 1048 Total Billed Treatment Time: 8 Total Billed Treatment 1 visit EVLowC 8 min G Codes Necessary: ASHLI Garcia PT September 17, 2017 11:03
[2017-09-17] MEDS ORDERED: IOHEXOL 350 MG/ML 100 ML (OMNIPAQUE 350) VIAL IV ONE (11:30)
[2017-09-17] MEDS ORDERED: CATHETER FLUSH 10 ML SYR IV PRN (11:30)
[2017-09-17] MEDS ORDERED: NS 250 ML (IVPB) BAG IV ONE (11:30)
--- NOTE | 2017-09-17 11:33 | Diagnostic Imaging Report ---
PROCEDURE: CT abdomen and pelvis with contrast. TECHNIQUE: Multiple contiguous axial images were obtained through the abdomen and pelvis after administration of intravenous contrast. INDICATION: Fluid retention and anemia. COMPARISON: No prior CT abdomen and pelvis studies are available for comparison. FINDINGS: Moderate size bilateral pleural effusions are noted, layering dependently to a depth of 7.6 cm on the right and 4.5 cm on the left. There is associated atelectasis in both lower lobes as well. No discrete liver mass is identified. The gallbladder is unremarkable. Pancreas and spleen are unremarkable. No adrenal mass is identified. Right kidney contains a tiny nonobstructing calculus in the mid region as well as a 4 mm nonobstructing calculus in the lower pole. Left kidney also contains a nonobstructing calculus in the lower pole measuring 8 mm. There is a cyst in the upper pole. No hydronephrosis is seen. Aorta is calcified but nonaneurysmal bowel loops are nondilated. There is no ascites. The bladder is unremarkable. Prostate is unremarkable. No definite abdominal or pelvic lymphadenopathy is seen. There is some edema throughout the subcutaneous tissues of the lower abdomen and pelvis suggestive of anasarca. IMPRESSION: 1. Moderate bilateral pleural effusions and bibasilar atelectasis. 2. Bilateral nonobstructing nephrolithiasis and small left renal cyst. 3. No acute feature in the abdomen or pelvis is identified. 4. Anasarca. Dictated by: Dictated on workstation # [id number]
[2017-09-17] MEDS ORDERED: ASPI-808 PO (11:41)
[2017-09-17] MEDS ORDERED: ATOR20TA66 PO (11:41)
--- NOTE | 2017-09-17 13:35 | Occupational Therapy Eval ---
OT Evaluation-General/PLF Medical Diagnosis Admission Date September 16, 2017 at 16:10 Medical Diagnosis: fluid overload/anemia Onset Date: September 16, 2017 Therapy Diagnosis Therapy Diagnosis: debility Height/Weight Height (Feet): 5 Height (Inches): 7.00 Weight (Pounds): 193 Weight (Ounces): 9.6 Precautions Precautions/Isolations: Standard Precautions Safety Interventions: None Referral Physician: Manohar Medical History Pertinent Medical History: HTN, PVD Additional Medical History hyperlipidemia, TIA, kidney stones Reviewed History: Yes Social History Home: Single Level Current Living Status: Spouse Entry Into Home: Stairs With Railing ADL-Prior Level of Function ADL PLOF Comments Pt reports being independent with ADLs and mobility. Does not use any assistive devices. DME/Equipment: Bath Chair, Grab Bars, Shower Drive Self: Yes OT Current Status Subjective Pt in bed, agrees to treatment. Pt states he is feeling better today. Has no pain or dizziness. Mental Status/Objective Patient Orientation: Person, Place, Situation Current Glasses/Contacts: Yes Hearing Aids: No Dentures/Partials: No Hand Dominance: Right Upper Extremity ROM WFL Upper Extremity Coordination Intact Upper Extremity Sensation Intact per pt report Upper Extremity Strength Grossly WFL ADL-Treatment ADL-Current Pt supine to sit without assistance. Pt participated in UE assessment. Pt demonstrated ability to doff/don sock without assistance which he states he was unable to do yesterday. Sit to stand independently. Gait to restroom without assistive device, no LOB noted. Pt demonstrated ability to perform toilet transfer without assistance or use of grab bars. Pt returned to bed without assistance. Pt is on a liquid diet, but states he has no difficulty managing containers. Pt states he has been getting up in room independently. Has no questions or concerns regarding ADLs or home safety at this time. Pt in bed with needs met, spouse present after session. Functional [place] Measure 0=Not Assessed/NA 4=Minimal Assistance 1=Total Assistance 5=Supervision or Setup 2=Maximal Assistance 6=Modified [place] 3=Moderate Assistance 7=Complete IndependenceIRFPAI Quality Coding Scale 6 Independent with activity with or without an assistive device 5 Patient requires set up or clean up by helper. Patient completes activity by themselves 4 Supervision or touching assist (CGA). [place] provide cues , steadying assist 3 The helper provides less than half the effort to complete the activity 2 The helper provides more than half the effort to complete the activity 1 Dependent. The helper does all the effort to complete an activity 7 Patient refused to complete or attempt activity 9 The patient did not perform the activity before the current illness or injury 88 Not attempted due to Medical conditions or safety concerns Eating (FIM): 6 Lower Body Dressing (FIM): 6 Toilet/Commode Transfer (FIM): 7 Education OT Patient Education: Safety issues Teaching Recipient: Patient Teaching Methods: Discussion Response to Teaching: Verbalize Understanding OT Education/Plan Problem List/Assessment Assessment: No Skilled OT Needs ID'd Pt admitted secondary to fluid overload/anemia. Pt states he is feeling better today. Pt demonstrates strength WFL. Pt demonstrates ability to safely perform ADL tasks and transfers without assistance. Pt has no LOB during mobility in the room. Pt states he has been getting up independently. Pt has no questions or concerns regarding ADLs or home safety. No skilled OT intervention indicated at this time. D/c OT. Discharge Recommendations Plan/Recommendations: Discontinue OT Treatment Plan/Plan of Care Treatment,Training & Education: No Treatment Duration: September 17, 2017 Frequency: 1 time per week (One time- evaluation only) Estimated Hrs Per Day: Other (evaluation only) Rehab Potential: Good Time/GCodes Start Time: 13:10 Stop Time: 13:24 Total Time Billed (hr/min): 14 Billed Treatment Time 1 visit, POORNIMA(14minutes) MATT PERKINS OT September 17, 2017 13:35
[2017-09-17] MEDS ORDERED: NS (IVPB) 100 ML ONE (13:48)
[2017-09-17] MEDS ORDERED: guaiFENesin/DM (ROBITUSSIN DM) 10 ML UDC PO PRN (23:45)
[2017-09-18 00:39] VITALS: BP 152/67
[2017-09-18] MEDS: RT-ALBUTEROL/IPRATROPIUM 3 ML (DUONEB) VIAL INH SCH ×3 (03:32→16:27)
[2017-09-18 04:10] VITALS: BP 149/68
[2017-09-18] MEDS: CATHETER FLUSH 10 ML SYR IV SCH ×2 (06:09→14:08)
[2017-09-18 06:44] LABS: BASOPHILS % (AUTO) 0 % (0-10); EOSINOPHILS # (AUTO) 0.3 10^3/uL (0.0-0.3); EOSINOPHILS % (AUTO) 5 % (0-10); HEMATOCRIT 26 % (40-54); HEMOGLOBIN 7.2 G/DL (13.3-17.7); LYMPHOCYTES # (AUTO) 0.9 X 10^3 (1.0-4.0); LYMPHOCYTES % (AUTO) 17 % (12-44); MEAN CORPUSCULAR HEMOGLOBIN 20 PG (25-34); MEAN CORPUSCULAR HGB CONC 28 G/DL (32-36); MEAN CORPUSCULAR VOLUME 73 FL (80-99); MEAN PLATELET VOLUME 9.8 FL (7.4-10.4); MONOCYTES # (AUTO) 0.5 X 10^3 (0.0-1.0); MONOCYTES % (AUTO) 10 % (0-12); NEUTROPHILS # (AUTO) 3.5 X 10^3 (1.8-7.8); NEUTROPHILS % (AUTO) 67 % (42-75); PLATELET COUNT 175 10^3/uL (130-400); RED BLOOD COUNT 3.55 10^6/uL (4.35-5.85); RED CELL DISTRIBUTION WIDTH 23.5 % (10.0-14.5); WHITE BLOOD COUNT 5.2 10^3/uL (4.3-11.0)
[2017-09-18 07:02] LABS: BUN/CREATININE RATIO 12; CALCIUM 8.3 MG/DL (8.5-10.1); CARBON DIOXIDE 28 MMOL/L (21-32); CHLORIDE 103 MMOL/L (98-107); CREATININE SERUM 0.86 MG/DL (0.60-1.30); GFR ESTIMATED > 60; GLUCOSE 93 MG/DL (70-105); POTASSIUM 3.5 MMOL/L (3.6-5.0); SODIUM 139 MMOL/L (135-145)
[2017-09-18 08:00] VITALS: BP 157/68
[2017-09-18] MEDS ORDERED: HYDROCORTISONE 100 MG/2 ML (Solu-CORTEF) VIAL IV PRN (09:15)
[2017-09-18] MEDS ORDERED: diphenhydrAMINE 50 MG/ML INJ (BENADRYL) IV PRN (09:15)
[2017-09-18] MEDS ORDERED: IRON DEXTRAN INJECTION 25 MG in NS (IVPB) 5.75 ML IV NR (09:15)
[2017-09-18] MEDS ORDERED: EPINEPHrine INJECTION 1 MG/ML AMP IM PRN (09:15)
[2017-09-18] MEDS ORDERED: RT-ALBUTEROL SULF 2.5 MG/3 ML PRE-MIX VIAL IH PRN (09:15)
[2017-09-18] MEDS ORDERED: NS IV 500 ML 500 ML IV SCH (09:15)
[2017-09-18] MEDS ORDERED: FURO-125 PO (09:19)
[2017-09-18] MEDS ORDERED: PANT40TA2 PO (09:19)
--- NOTE | 2017-09-18 09:21 | Discharge Inst-Simple/Standard ---
Discharge Inst-Standard Discharge Medications New, Converted or Re-Newed RX: Call to Patients Pharmacy Patient Instructions/Follow Up Plan of Care/Instructions/FU: Please take your medications as written. Please follow up with Dr Jang as he directed on Wednesday for prep for a colonoscopy. Please follow up with Dr Ness next week to check your blood count as well. Activity as Tolerated: Yes Discharge Diet: Low Sodium Diet Return to The Hospital For: Dizziness, chest pain, SOB, dark or red stools, or if you feel you are getting worse. SALLIE PORRAS MD September 18, 2017 9:21 am
[2017-09-18] MEDS: FUROSEMIDE 40 MG/4 ML INJ (LASIX) IVP SCH (09:22)
--- NOTE | 2017-09-18 09:22 | Discharge Summary-Hospitalist ---
Diagnosis/Chief Complaint Date of Admission September 16, 2017 at 16:10 Date of Discharge Discharge Date: September 18, 2017 Admission Diagnosis Severe Anemia Discharge Diagnosis severe anemia (1) Microcytic anemia Status: Acute Assessment & Plan: Profound anemia- improving 3 units pRBCs given total throughout admission Iron deficit replaced with Infed on 09/18 Occult blood negative from lab but positive by exam with Dr Jang on admission Hold ASA Surgery consulted, appreciate recs He is to follow up with Dr Jang on Wednesday for bowel prep and outpatient scope on Wednesday (2) Anasarca Status: Acute Assessment & Plan: CT abd/pelvis reveals no masses Continue on lasix (3) Transient ischemic attack Status: Chronic Assessment & Plan: s/p CEA Hold ASA (4) Prophylactic measure Assessment & Plan: Saline lock SCDs only Reg diet Discharge Summary Procedures/Consulations Dr Ibrahim- Cardiology Dr Jang- Gen Surgery Discharge Physical Exam Allergies: Coded Allergies: NKANo Known Allergies (Verified Allergy, Unknown, 08/31/05) Vitals & I&Os Vital Signs Date Time Temp Pulse Resp B/P (MAP) Pulse Ox O2 Delivery O2 Flow Rate FiO2 09/18/17 09:17 91 Room Air 09/18/17 08:00 98.8 108 20 157/68 (97) General Appearance: Alert, Oriented X3 Respiratory: Clear to Auscultation Cardiovascular: Regular Rate Hospital Course Pt presented to the ER due to dizziness and edema and was found to be severely anemic with a Hgb of 4.7. He was admitted for transfusions and further work up. FOBT was positive in the ER by Dr Jang. He received 3 units of pRBCs and InFed for IV iron replacment. His hemoglobin remained stable and his symptoms resolved. He did remain edematous though so will be continued on lasix as an outpatient. He was much improved and requesting discharge to home. He was given very strict return precautions for dark stools, dizziness, chest pain, SOB, or if he felt worsen. He expressed understanding. He is to called Dr Jang's office on Wednesday AM for bowel prep so he can complete scope on Wednesday. I always advised patient to called Dr Ness's office Wednesday for appointment next week to check blood count and to follow up this hospital stay. Labs (last 24 hrs) Laboratory Tests 09/17/17 16:48: Lab Scanned Report Transfusion Reaction Form 09/18/17 06:30: White Blood Count 5.2, Red Blood Count 3.55L, Hemoglobin 7.2L, Hematocrit 26L, Mean Corpuscular Volume 73L, Mean Corpuscular Hemoglobin 20L, Mean Corpuscular Hemoglobin Concent 28L, Red Cell Distribution Width 23.5H, Platelet Count 175, Mean Platelet Volume 9.8, Neutrophils (%) (Auto) 67, Lymphocytes (%) (Auto) 17, Monocytes (%) (Auto) 10, Eosinophils (%) (Auto) 5, Basophils (%) (Auto) 0, Neutrophils # (Auto) 3.5, Lymphocytes # (Auto) 0.9L, Monocytes # (Auto) 0.5, Eosinophils # (Auto) 0.3, Basophils # (Auto) 0.0, Sodium Level 139, Potassium Level 3.5L, Chloride Level 103, Carbon Dioxide Level 28, Anion Gap 8, Blood Urea Nitrogen 10, Creatinine 0.86, Estimat Glomerular Filtration Rate > 60, BUN/ Creatinine Ratio 12, Glucose Level 93, Calcium Level 8.3L Patient resulted labs reviewed. Pending Labs Laboratory Tests 09/18/17 06:30: White Blood Count 5.2, Red Blood Count 3.55, Hemoglobin 7.2, Hematocrit 26, Mean Corpuscular Volume 73, Mean Corpuscular Hemoglobin 20, Mean Corpuscular Hemoglobin Concent 28, Red Cell Distribution Width 23.5, Platelet Count 175, Mean Platelet Volume 9.8, Neutrophils (%) (Auto) 67, Lymphocytes (%) (Auto) 17, Monocytes (%) (Auto) 10, Eosinophils (%) (Auto) 5, Basophils (%) (Auto) 0, Neutrophils # (Auto) 3.5, Lymphocytes # (Auto) 0.9, Monocytes # (Auto) 0.5, Eosinophils # (Auto) 0.3, Basophils # (Auto) 0.0, Sodium Level 139, Potassium Level 3.5, Chloride Level 103, Carbon Dioxide Level 28, Anion Gap 8, Blood Urea Nitrogen 10, Creatinine 0.86, Estimat Glomerular Filtration Rate > 60, BUN/ Creatinine Ratio 12, Glucose Level 93, Calcium Level 8.3 Imaging: Reviewed Imaging Report Discussion & Recommendations Discharge Planning: >30 minutes discharge planning Discharge Home Medications: Active Scripts Active Lasix (Furosemide) 20 Mg Tablet 20 Mg PO DAILY Protonix (Pantoprazole Sodium) 40 Mg Tablet.dr 40 Mg PO DAILY Reported Atorvastatin Calcium 20 Mg Tablet 20 Mg PO HS Aspirin 325 Mg Tablet 325 Mg PO DAILY Multiple Vitamin (Multivitamins) 1 Tab Tablet 1 Tab PO DAILY Instructions to patient/family Please see electronic discharge instructions given to patient. Clinical Quality Measures DVT/VTE Risk/Contraindication: Risk Factor Score Per Nursin RFS Level Per Nursing on Admit: 4+=Very High Copy Copies To 1: ERICKA NESS DO Problem Qualifiers (1) Transient ischemic attack: Transient cerebral ischemia type: unspecified Qualified Codes: G45.9 - Transient cerebral ischemic attack, unspecified SALLIE PORRAS MD September 18, 2017 09:22
[2017-09-18] MEDS: PANTOPRAZOLE 40 MG/10 ML (PROTONIX) VIAL IV SCH (09:23)
[2017-09-18] MEDS ORDERED: IRON DEXTRAN INJECTION 1,000 MG in NS (IVPB) 250 ML IV ONE (09:30)
[2017-09-18] MEDS ORDERED: IRON DEXTRAN IV NR (09:45)
[2017-09-18] MEDS ORDERED: NS IV NR (09:45)
[2017-09-18] MEDS ORDERED: IRON DEXTRAN IV ONE (10:00)
[2017-09-18] MEDS ORDERED: NS IV ONE (10:00)
[2017-09-18 12:00] VITALS: BP 135/63
--- NOTE | 2017-09-18 14:55 | Progress Note ---
Subjective Date Seen by Provider: September 18, 2017 Time Seen by Provider: 08:00 Subjective/Events-last exam Feeling better. Fluid off lower body better and less tender. Denies any bloody bowel movements. Hgb stable. Wanting to go home. Objective Exam Vital Signs Date Time Temp Pulse Resp B/P (MAP) Pulse Ox O2 Delivery O2 Flow Rate FiO2 09/18/17 12:00 97.4 102 18 135/63 (87) 91 Room Air 09/18/17 09:17 91 Room Air 09/18/17 09:00 Room Air 09/18/17 08:00 98.8 108 20 157/68 (97) 91 Room Air 09/18/17 04:10 98.9 105 18 149/68 (95) 92 Room Air 09/18/17 03:32 92 Room Air 09/18/17 01:00 95 09/18/17 00:39 99.4 97 20 152/67 (95) 94 Room Air 09/17/17 21:00 Room Air 09/17/17 20:58 89 Room Air 09/17/17 20:00 98.2 94 18 156/65 (95) 91 Room Air 09/17/17 19:00 95 09/17/17 16:07 97.6 98 20 146/66 91 Room Air 09/17/17 16:05 97.6 98 18 146/66 (92) 91 Room Air I & O 09/18/17 07:00 Intake Total 1650 ml Output Total 2800 ml Balance -1150 ml Capillary Refill : Less Than 3 Seconds General Appearance: No Apparent Distress, Chronically ill HEENT: PERRL/EOMI, Moist Mucous Membranes; No Scleral Icterus (L), No Scleral Icterus (R) Neck: Normal Inspection, Supple; No Thyromegaly Respiratory: Lungs Clear, No Respiratory Distress Cardiovascular: Regular Rate, Rhythm, No Murmur Gastrointestinal: non tender, soft Extremity: Swelling (3+ to calves bilaterally) Neurologic/Psychiatric: Alert, Oriented x3, Normal Mood/Affect Skin: Pallor; No [place] Lymphatic: No Adenopathy Results Lab Laboratory Tests 09/17/17 16:48: Lab Scanned Report Transfusion Reaction Form 09/18/17 06:30: White Blood Count 5.2, Red Blood Count 3.55L, Hemoglobin 7.2L, Hematocrit 26L, Mean Corpuscular Volume 73L, Mean Corpuscular Hemoglobin 20L, Mean Corpuscular Hemoglobin Concent 28L, Red Cell Distribution Width 23.5H, Platelet Count 175, Mean Platelet Volume 9.8, Neutrophils (%) (Auto) 67, Lymphocytes (%) (Auto) 17, Monocytes (%) (Auto) 10, Eosinophils (%) (Auto) 5, Basophils (%) (Auto) 0, Neutrophils # (Auto) 3.5, Lymphocytes # (Auto) 0.9L, Monocytes # (Auto) 0.5, Eosinophils # (Auto) 0.3, Basophils # (Auto) 0.0, Sodium Level 139, Potassium Level 3.5L, Chloride Level 103, Carbon Dioxide Level 28, Anion Gap 8, Blood Urea Nitrogen 10, Creatinine 0.86, Estimat Glomerular Filtration Rate > 60, BUN/ Creatinine Ratio 12, Glucose Level 93, Calcium Level 8.3L Assessment/Plan Assessment/Plan Assessment/Plan anemia shortness of breath anasarca occult positive stool Hgb stable after being transfused We discussed egd and colonoscopy and would like to do as outpatient. Will have him follow up with me on Wednesday and arrange. Clinical Quality Measures DVT/VTE Risk/Contraindication: Risk Factor Score Per Nursin RFS Level Per Nursing on Admit: 4+=Very High RAQUEL LEAL DO September 18, 2017 14:55
[2017-09-18 16:00] VITALS: BP 135/63
== END 2017-09-18 16:00 | disposition home or self-care (01) | DRG 812 ==
LOC: EDUNIT# 13:34 → ER 13:36 → 4TH 16:10
PROVIDERS: ADMIT Family Medicine; ATTEND Family Medicine
DX: D50.9 Iron deficiency anemia, unspecified (principal); R19.5 Other fecal abnormalities; R60.1 Generalized edema; N50.89 Other specified disorders of the male genital organs; I10 Essential (primary) hypertension; E78.5 Hyperlipidemia, unspecified; M19.91 Primary osteoarthritis, unspecified site; I65.23 Occlusion and stenosis of bilateral carotid arteries; Z87.442 Personal history of urinary calculi; Z86.73 Personal history of transient ischemic attack (TIA), and cerebral infarction without residual deficits
CPT/HCPCS: 36415; 71046; 74177; 80048; 80053; 82274; 82728; 83735; 83880; 84484; 85007; 85014; 85018; 85025; 85027; 85045; 85610; 86850; 86900; 86901; 86920; 93005; 93041; 93306; 94640; 94760; 96374

== ENCOUNTER → 2017-09-16 | Outpatient (CLI) | payer MEDICARE, BC ==
[~2017-09-16] MED LIST changes: +ASPI-808 PO; +ATOR20TA66 PO; +FURO-125 PO; +MULT1CAP27 PO; +PANT40TA2 PO
== END ==
LOC: CARD 12:05
PROVIDERS: ATTEND Internal Medicine Cardiovascular Disease
DX: I10 Essential (primary) hypertension (principal); E78.5 Hyperlipidemia, unspecified; I65.23 Occlusion and stenosis of bilateral carotid arteries; G45.8 Other transient cerebral ischemic attacks and related syndromes
CPT/HCPCS: 93306

== ENCOUNTER 2017-09-20 10:44 | Outpatient (CLI) | payer MEDICARE, BC ==
[~2017-09-20] VITALS: Ht 170.2 cm; Wt 83.0 kg
[~2017-09-20 10:44] MED LIST changes: +ASPI-808 PO; +ATOR20TA66 PO; +FURO-125 PO; +PANT40TA2 PO
[2017-09-21] MEDS ORDERED: MULT1CAP27 PO (11:02)
== END 2017-09-20 12:19 ==
LOC: PREOP 10:44
PROVIDERS: ATTEND Surgery
DX: Z01.818 Encounter for other preprocedural examination (principal); D64.9 Anemia, unspecified; R19.5 Other fecal abnormalities

== ENCOUNTER 2017-09-21 10:36 | Day surgery (SDC) | payer MEDICARE, BC ==
[~2017-09-21] VITALS: Ht 170.2 cm; Wt 83.0 kg
--- OUTSIDE RECORDS SUMMARY | 2017-09-21 10:40 | XMS REPORT | Continuity of Care Document ---
Author Author [facility] Organization [facility] Address Unknown Phone Unavailable Allergies Active Description Code Type Severity Reaction Onset Reported/Identified Relationship to Patient Clinical Status Yes NO KNOWN DRUG ALLERGIES UNKNOWN NO KNOWN DRUG ALLERG Yes NKANo Known Allergies NKA Miscellaneous Allergy Unknown N/A 08/31/2005 Medications There is no data. 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 11/15/2011 Ot 784.42 DYSPHONIA 11/15/2011 Ot V57.3 CARE INVOLVING SPEECH-LANGUAGE THERAPY 06/02/2013 LILO TIM DO Ot 266.2 B-COMPLEX DEFIC NEC 06/02/2013 LILO TIM DO Ot 272.0 PURE HYPERCHOLESTEROLEM 06/02/2013 LILO TIM DO Ot 272.4 HYPERLIPIDEMIA NEC/NOS 06/02/2013 LILO TIM DO Ot 401.0 MALIGNANT HYPERTENSION 06/02/2013 LILO TIM DO Ot 435.9 TRANS CEREB ISCHEMIA NOS 06/02/2013 LILO TIM DO Ot 443.9 PERIPH VASCULAR DIS NOS 06/02/2013 LILO TIM DO Ot 782.0 SKIN SENSATION DISTURB 06/02/2013 LILO TIM DO Ot V58.66 LONG-TERM (CURRENT) USE OF ASPIRIN 06/02/2013 LILO TIM DO Ot V58.69 OTH MED,LT,CURRENT USE 06/07/2014 Ot 433.30 06/07/2014 Ot 433.10 06/07/2014 Ot V81.5 06/07/2014 Ot 433.10 06/07/2014 Ot V72.63 06/07/2014 Ot V72.81 06/07/2014 Ot V74.8 06/07/2014 Ot 272.4 06/07/2014 Ot 440.9 06/07/2014 Ot 786.09 06/07/2014 Ot 272.4 06/07/2014 Ot 397.0 06/07/2014 Ot 424.0 06/07/2014 Ot 440.9 06/07/2014 Ot 786.09 06/07/2014 TIP WOLFF Ot 272.4 06/07/2014 TIP WOLFF Ot 401.9 06/07/2014 TIP WOLFF Ot 433.10 06/27/2014 KEVIN PADILLA, GINI Purdy Ot 724.02 06/27/2014 Ot 433.30 06/27/2014 Ot 433.10 06/27/2014 Ot V81.5 06/27/2014 Ot 433.10 06/27/2014 Ot V72.63 06/27/2014 Ot V72.81 06/27/2014 Ot V74.8 06/27/2014 Ot 272.4 06/27/2014 Ot 440.9 06/27/2014 Ot 786.09 06/27/2014 Ot 272.4 06/27/2014 Ot 397.0 06/27/2014 Ot 424.0 06/27/2014 Ot 440.9 06/27/2014 Ot 786.09 06/27/2014 TIP WOLFF Ot 272.4 06/27/2014 TIP WOLFF Ot 401.9 06/27/2014 TIP WOLFF Ot 433.10 06/27/2014 KEVIN PADILLA, GINI Purdy Ot 724.02 11/23/2014 BRITTANY PADILLA, NAZ Morel Ot 272.4 11/23/2014 BRITTANY PADILLA, NAZ Morel Ot 401.9 11/23/2014 NAZ SOTO MD Ot 433.10 01/14/2015 Ot 433.30 01/14/2015 Ot 433.10 01/14/2015 Ot V81.5 01/14/2015 Ot 433.10 01/14/2015 Ot V72.63 01/14/2015 Ot V72.81 01/14/2015 Ot V74.8 01/14/2015 Ot 272.4 01/14/2015 Ot 440.9 01/14/2015 Ot 786.09 01/14/2015 Ot 272.4 01/14/2015 Ot 397.0 01/14/2015 Ot 424.0 01/14/2015 Ot 440.9 01/14/2015 Ot 786.09 01/14/2015 TIP WOLFF Ot 272.4 01/14/2015 TIP WOLFF Ot 401.9 01/14/2015 TIP WOLFF Ot 433.10 01/14/2015 KEVIN PADILLA, GINI Purdy Ot 724.02 01/14/2015 BRITTANY PADILLA, NAZ Morel Ot 272.4 01/14/2015 BRITTANY PADILLA, NAZ Morel Ot 401.9 01/14/2015 BRITTANY PADILLA, NAZ Morel Ot 433.10 01/31/2015 BRITTANY PADILLA, NAZ Morel Ot 272.4 01/31/2015 BRITTANY PADILLA, NAZ Morel Ot 401.9 01/31/2015 BRITTANY PADILLA, NAZ Morel Ot 433.10 02/05/2015 BRITTANY PADILLA, NAZ Morel Ot 272.4 02/05/2015 BRITTANY PADILLA, NAZ Morel Ot 401.9 02/05/2015 BRITTANY PADILLA, NAZ Morel Ot 433.10 02/17/2016 Ot 433.10 CAROTID ARTERY OCCLUSION W O CEREBRAL IN 02/17/2016 Ot V72.63 PRE- PROCEDURAL LABORATORY EXAMINATION 02/17/2016 Ot V72.81 EXAM-PRE- OPERATIVE CARDIOVASCULAR 02/17/2016 Ot V74.8 SCREEN- BACTERIAL DIS NEC 02/17/2016 Ot 272.4 HYPERLIPIDEMIA NEC/NOS 02/17/2016 Ot 440.9 ATHEROSCLEROSIS NOS 02/17/2016 Ot 786.09 RESPIRATORY ABNORM NEC 02/17/2016 Ot 272.4 HYPERLIPIDEMIA NEC/NOS 02/17/2016 Ot 397.0 TRICUSPID VALVE DISEASE 02/17/2016 Ot 424.0 MITRAL VALVE DISORDER 02/17/2016 Ot 440.9 ATHEROSCLEROSIS NOS 02/17/2016 Ot 786.09 RESPIRATORY ABNORM NEC 02/17/2016 TIP WOLFF Ot 272.4 HYPERLIPIDEMIA NEC/NOS 02/17/2016 TIP WOLFF Ot 401.9 HYPERTENSION NOS 02/17/2016 TIP WOLFF Ot 433.10 CAROTID ARTERY OCCLUSION W O CEREBRAL IN 02/17/2016 KEVIN PADILLA, GINI Purdy Ot 724.02 SPINAL STENOSIS, LUMBAR REG, W/OUT NEURO 02/17/2016 NAZ SOTO MD Ot 272.4 HYPERLIPIDEMIA NEC/NOS 02/17/2016 NAZ SOTO MD Ot 401.9 HYPERTENSION NOS 02/17/2016 NAZ SOTO MD Ot 433.10 CAROTID ARTERY OCCLUSION W O CEREBRAL IN 02/17/2016 NAZ SOTO MD Ot 272.4 HYPERLIPIDEMIA NEC/NOS 02/17/2016 NAZ SOTO MD Ot 401.9 HYPERTENSION NOS 02/17/2016 NAZ SOTO MD Ot 433.10 CAROTID ARTERY OCCLUSION W O CEREBRAL IN 05/06/2017 PaMango moya W 401.9 UNSPECIFIED ESSENTIAL HYPERTENSION 05/06/2017 Paoni, Mango W I10 ESSENTIAL (PRIMARY) HYPERTENSION 05/06/2017 PaMango moya W 401.9 UNSPECIFIED ESSENTIAL HYPERTENSION 05/06/2017 Mango Ness W I10 ESSENTIAL (PRIMARY) HYPERTENSION 05/20/2017 TIP WOLFF Ot 272.4 HYPERLIPIDEMIA NEC/NOS 05/20/2017 TIP WOLFF Ot 401.9 HYPERTENSION NOS 05/20/2017 TIP WOLFF Ot 433.10 CAROTID ARTERY OCCLUSION W O CEREBRAL IN 05/20/2017 KEVIN PADILLA, GINI S Ot 724.02 SPINAL STENOSIS, LUMBAR REG, W/OUT NEURO 05/20/2017 NAZ SOTO MD Ot 272.4 HYPERLIPIDEMIA NEC/NOS 05/20/2017 NAZ SOTO MD Ot 401.9 HYPERTENSION NOS 05/20/2017 NAZ SOTO MD Ot 433.10 CAROTID ARTERY OCCLUSION W O CEREBRAL IN 05/20/2017 NAZ SOTO MD Ot 272.4 HYPERLIPIDEMIA NEC/NOS 05/20/2017 NAZ SOTO MD Ot 401.9 HYPERTENSION NOS 05/20/2017 NAZ SOTO MD Ot 433.10 CAROTID ARTERY OCCLUSION W O CEREBRAL IN 06/12/2017 TIP WOLFF Ot 272.4 HYPERLIPIDEMIA NEC/NOS 06/12/2017 TIP WOLFF Ot 401.9 HYPERTENSION NOS 06/12/2017 TIP WOLFF Ot 433.10 CAROTID ARTERY OCCLUSION W O CEREBRAL IN 06/12/2017 KEVIN PADILLA, GINI S Ot 724.02 SPINAL STENOSIS, LUMBAR REG, W/OUT NEURO 06/12/2017 NAZ SOTO MD Ot 272.4 HYPERLIPIDEMIA NEC/NOS 06/12/2017 NAZ SOTO MD Ot 401.9 HYPERTENSION NOS 06/12/2017 NAZ SOTO MD Ot 433.10 CAROTID ARTERY OCCLUSION W O CEREBRAL IN 06/12/2017 NAZ SOTO MD Ot 272.4 HYPERLIPIDEMIA NEC/NOS 06/12/2017 NAZ SOTO MD Ot 401.9 HYPERTENSION NOS 06/12/2017 NAZ SOTO MD Ot 433.10 CAROTID ARTERY OCCLUSION W O CEREBRAL IN 07/13/2017 RENATE CARUSO MD Ot G47.10 HYPERSOMNIA, UNSPECIFIED 07/13/2017 RENATE CARUSO MD Ot G47.33 OBSTRUCTIVE SLEEP APNEA (ADULT) (PEDIATR 07/13/2017 RENATE CARUSO MD Ot R06.83 SNORING 07/13/2017 TIP WOLFF Ot 272.4 HYPERLIPIDEMIA NEC/NOS 07/13/2017 TIP WOLFF Ot 401.9 HYPERTENSION NOS 07/13/2017 TIP WOLFF K Ot 433.10 CAROTID ARTERY OCCLUSION W O CEREBRAL IN 07/13/2017 KEVIN PADILLA, GINI Purdy Ot 724.02 SPINAL STENOSIS, LUMBAR REG, W/OUT NEURO 07/13/2017 NAZ SOTO MD Ot 272.4 HYPERLIPIDEMIA NEC/NOS 07/13/2017 NAZ SOTO MD Ot 401.9 HYPERTENSION NOS 07/13/2017 NAZ SOTO MD Ot 433.10 CAROTID ARTERY OCCLUSION W O CEREBRAL IN 07/13/2017 NAZ SOTO MD Ot 272.4 HYPERLIPIDEMIA NEC/NOS 07/13/2017 NAZ SOTO MD Ot 401.9 HYPERTENSION NOS 07/13/2017 NAZ SOTO MD Ot 433.10 CAROTID ARTERY OCCLUSION W O CEREBRAL IN 07/14/2017 RENATE CARUSO MD Ot G47.10 HYPERSOMNIA, UNSPECIFIED 07/14/2017 RENATE CARUSO MD Ot G47.33 OBSTRUCTIVE SLEEP APNEA (ADULT) (PEDIATR 07/14/2017 RENATE CARUSO MD Ot R06.83 SNORING 09/14/2017 TIP WOLFF K Ot 272.4 HYPERLIPIDEMIA NEC/NOS 09/14/2017 TIP WOLFF Ot 401.9 HYPERTENSION NOS 09/14/2017 TIP WOLFF Ot 433.10 CAROTID ARTERY OCCLUSION W O CEREBRAL IN 09/14/2017 KEVIN PADILAL, GINI S Ot 724.02 SPINAL STENOSIS, LUMBAR REG, W/OUT NEURO 09/14/2017 NAZ SOTO MD Ot 272.4 HYPERLIPIDEMIA NEC/NOS 09/14/2017 NAZ SOTO MD Ot 401.9 HYPERTENSION NOS 09/14/2017 NAZ SOTO MD Ot 433.10 CAROTID ARTERY OCCLUSION W O CEREBRAL IN 09/14/2017 NAZ SOTO MD Ot 272.4 HYPERLIPIDEMIA NEC/NOS 09/14/2017 NAZ SOTO MD Ot 401.9 HYPERTENSION NOS 09/14/2017 NAZ SOTO MD Ot 433.10 CAROTID ARTERY OCCLUSION W O CEREBRAL IN 09/14/2017 TIP WOLFF Ot 272.4 HYPERLIPIDEMIA NEC/NOS 09/14/2017 TIP WOLFF Ot 401.9 HYPERTENSION NOS 09/14/2017 TIP WOLFF Ot 433.10 CAROTID ARTERY OCCLUSION W O CEREBRAL IN 09/14/2017 KEVIN PADILLA, GINI S Ot 724.02 SPINAL STENOSIS, LUMBAR REG, W/OUT NEURO 09/14/2017 NAZ SOTO MD Ot 272.4 HYPERLIPIDEMIA NEC/NOS 09/14/2017 NAZ SOTO MD Ot 401.9 HYPERTENSION NOS 09/14/2017 NAZ SOOT MD Ot 433.10 CAROTID ARTERY OCCLUSION W O CEREBRAL IN 09/14/2017 NAZ SOTO MD Ot 272.4 HYPERLIPIDEMIA NEC/NOS 09/14/2017 NAZ SOTO MD Ot 401.9 HYPERTENSION NOS 09/14/2017 NAZ SOTO MD Ot 433.10 CAROTID ARTERY OCCLUSION W O CEREBRAL IN 09/17/2017 NAZ SOTO MD Ot E78.5 HYPERLIPIDEMIA, UNSPECIFIED 09/17/2017 NAZ SOTO MD Ot 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 09/17/2017 NAZ SOTO MD Ot I10 ESSENTIAL (PRIMARY) HYPERTENSION 09/17/2017 NAZ SOTO MD Ot I65.23 OCCLUSION AND STENOSIS OF BILATERAL [place] 09/18/2017 CHIQUITA PADILLA, SALLIE Bello Ot D50.9 IRON DEFICIENCY ANEMIA, UNSPECIFIED 09/18/2017 SALLIE PORRAS MD, Ot E78.5 HYPERLIPIDEMIA, UNSPECIFIED 09/18/2017 SALLIE PORRAS MD, Ot I10 ESSENTIAL (PRIMARY) HYPERTENSION 09/18/2017 SALLIE PORRAS MD, Ot I65.23 OCCLUSION AND STENOSIS OF BILATERAL [place] 09/18/2017 SALLIE PORRAS MD, Ot M19.91 PRIMARY OSTEOARTHRITIS, UNSPECIFIED SITE 09/18/2017 SALLIE PORRAS MD, Ot N50.89 OTHER SPECIFIED DISORDERS OF THE MALE GE 09/18/2017 SALLIE PORRAS MD, Ot R19.5 OTHER FECAL ABNORMALITIES 09/18/2017 SALLIE PORRAS MD, Ot R60.1 GENERALIZED EDEMA 09/18/2017 SALLIE PORRAS MD, Ot Z86.73 PRSNL HX OF TIA (TIA), AND CEREB INFRC W 09/18/2017 SALLIE PORRAS MD, Ot Z87.442 PERSONAL HISTORY OF URINARY CALCULI Procedures Code Description Performed By Performed On 00.40 06/03/2011 38.12 06/03/2011 Results Test Result Range [facility] - 05/04/16 10:57 Anion Gap 15 6-14 BUN 11 mg/dL 5-25 Calcium 8.8 mg/dL 8.3-10.4 Chloride 106 mmol/L 95-114 CO2 25 mEq/L 22-33 Creat 0.91 mg/dL 0.50-1.50 eGFR 80 mL/min/1.73m2 >59 Glucose 115 mg/dL 70-110 Osmo 291 280-295 Potassium 4.7 mmol/L 3.5-5.3 Sodium 141 mmol/L 134-148 PSA Yearly Screen - 11/05/16 10:02 PSA TOTAL 2.6 ng/mL 0.0-4.0 [facility] - 05/06/17 10:54 Anion Gap 14 6-14 BUN 14 mg/dL 5-25 Calcium 8.7 mg/dL 8.3-10.4 Chloride 106 mmol/L 95-114 CO2 24 mEq/L 22-33 Creat 0.92 mg/dL 0.50-1.50 eGFR 78 mL/min/1.73m2 >59 Glucose 104 mg/dL 70-110 Osmo 288 280-295 Potassium 4.5 mmol/L 3.5-5.3 Sodium 139 mmol/L 134-148 Complete blood count (CBC) with automated white blood cell (WBC) differential - 09/16/17 13:49 Blood leukocytes automated count (number/volume) 4.3 10*3/uL 4.3-11.0 Blood erythrocytes automated count (number/volume) 2.92 10*6/uL 4.35-5.85 Venous blood hemoglobin measurement (mass/volume) 4.7 g/dL 13.3-17.7 Blood hematocrit (volume fraction) 20 % 40-54 Automated erythrocyte mean corpuscular volume 68 [foz_us] 80-99 Automated erythrocyte mean corpuscular hemoglobin (mass per erythrocyte) 16 pg 25-34 Automated erythrocyte mean corpuscular hemoglobin concentration measurement ( mass/volume) 24 g/dL 32-36 Automated erythrocyte distribution width ratio 20.2 % 10.0-14.5 Automated blood platelet count (count/volume) 204 10*3/uL 130-400 Automated blood platelet mean volume measurement 10.0 [foz_us] 7.4-10.4 Automated blood neutrophils/100 leukocytes 69 % 42-75 Automated blood lymphocytes/100 leukocytes 19 % 12-44 Blood monocytes/100 leukocytes 11 % 0-12 Automated blood eosinophils/100 leukocytes 1 % 0-10 Automated blood basophils/100 leukocytes 1 % 0-10 Blood neutrophils automated count (number/volume) 3.0 10*3 1.8-7.8 Blood lymphocytes automated count (number/volume) 0.8 10*3 1.0-4.0 Blood monocytes automated count (number/volume) 0.5 10*3 0.0-1.0 Automated eosinophil count 0.1 10*3/uL 0.0-0.3 Automated blood basophil count (count/volume) 0.0 10*3/uL 0.0-0.1 Comprehensive metabolic panel - 09/16/17 13:49 Serum or plasma sodium measurement (moles/volume) 137 mmol/L 135-145 Serum or plasma potassium measurement (moles/volume) 4.2 mmol/L 3.6-5.0 Serum or plasma chloride measurement (moles/volume) 105 mmol/L 98-107 Carbon dioxide 26 mmol/L 21-32 Serum or plasma anion gap determination (moles/volume) 6 mmol/L 5-14 Serum or plasma urea nitrogen measurement (mass/volume) 13 mg/dL 7-18 Serum or plasma creatinine measurement (mass/volume) 0.83 mg/dL 0.60-1.30 Serum or plasma urea nitrogen/creatinine mass ratio 16 NRG Serum or plasma creatinine measurement with calculation of estimated glomerular filtration rate > [facility] Serum or plasma glucose measurement (mass/volume) 114 mg/dL 70-105 Serum or plasma calcium measurement (mass/volume) 8.4 mg/dL 8.5-10.1 Serum or plasma total bilirubin measurement (mass/volume) 1.3 mg/dL 0.1-1.0 Serum or plasma alkaline phosphatase measurement (enzymatic activity/volume) 85 U/L 40-136 Serum or plasma aspartate aminotransferase measurement (enzymatic activity/ volume) 19 U/L 5-34 Serum or plasma alanine aminotransferase measurement (enzymatic activity/volume ) 13 U/L 0-55 Serum or plasma protein measurement (mass/volume) 6.2 g/dL 6.4-8.2 Serum or plasma albumin measurement (mass/volume) 3.6 g/dL 3.2-4.5 Magnesium - 09/16/17 13:49 Magnesium 2.1 mg/dL 1.8-2.4 Serum or plasma troponin i.cardiac measurement (mass/volume) - 09/16/17 13:49 Serum or plasma troponin i.cardiac measurement (mass/volume) < ng/ mL <0.30 Serum or plasma lithium measurement (moles/volume) - 09/16/17 13:49 BNP level 505.4 pg/mL <100.0 RED CELLS LEUKO REDUCED AS1 - 09/16/17 14:27 RED CELLS LEUKO REDUCED AS1 TRANSFUSED 09/16/17 0351 [facility] Blood type T Indirect antibody screen panel - 09/16/17 14:27 ABO+Rh group AP [facility] Transfusion band number [id number] [facility] Blood group antibody screen NEGATIVE [facility] ANEMIA ANALYZER - 09/16/17 14:45 Blood leukocytes automated count (number/volume) 4.3 10*3/uL 4.3-11.0 Blood erythrocytes automated count (number/volume) 2.92 10*6/uL 4.35-5.85 Venous blood hemoglobin measurement (mass/volume) 4.7 g/dL 13.3-17.7 Blood hematocrit (volume fraction) 20 % 40-54 Automated erythrocyte mean corpuscular volume 68 [foz_us] 80-99 Automated erythrocyte mean corpuscular hemoglobin (mass per erythrocyte) 16 pg 25-34 Automated erythrocyte mean corpuscular hemoglobin concentration measurement ( mass/volume) 24 g/dL 32-36 Automated erythrocyte distribution width ratio 20.2 % 10.0-14.5 Automated blood platelet count (count/volume) 204 10*3/uL 130-400 Automated blood platelet mean volume measurement 10.0 [foz_us] 7.4-10.4 Automated blood neutrophils/100 leukocytes 69 % 42-75 Automated blood lymphocytes/100 leukocytes 19 % 12-44 Blood monocytes/100 leukocytes 3 % NRG Automated blood eosinophils/100 leukocytes 1 % 0-10 Automated blood basophils/100 leukocytes 1 % 0-10 Blood neutrophils automated count (number/volume) 3.0 10*3 1.8-7.8 Blood lymphocytes automated count (number/volume) 0.8 10*3 1.0-4.0 Blood monocytes automated count (number/volume) 0.5 10*3 0.0-1.0 Automated eosinophil count 0.1 10*3/uL 0.0-0.3 Automated blood basophil count (count/volume) 0.0 10*3/uL 0.0-0.1 Manual blood segmented neutrophils/100 leukocytes 71 % NRG Blood band neutrophils/100 leukocytes 0 % NRG Manual blood lymphocytes/100 leukocytes 22 % NRG Manual eosinophils/100 leukocytes in nose 3 % NRG Manual blood basophils/100 leukocytes 1 % NRG Blood anisocytosis detection by light microscopy SLIGHT NRG Blood ovalocytes detection by light microscopy SLIGHT NRG Blood hypochromia detection by light microscopy MARKED NRG Blood microcytes detection by light microscopy MODERATE NRG Blood reticulocytes count (number/volume) 38 10*9/L 24- 90 Blood reticulocytes/100 erythrocytes 1.35 % 0.50-2.40 Whole blood hemoglobin and hematocrit panel - 09/17/17 00:55 Venous blood hemoglobin measurement (mass/volume) 6.7 g/dL 13.3-17.7 Blood hematocrit (volume fraction) 24 % 40-54 Complete blood count (CBC) with automated white blood cell (WBC) differential - 09/17/17 04:35 Blood leukocytes automated count (number/volume) 5.8 10*3/uL 4.3-11.0 Blood erythrocytes automated count (number/volume) 3.43 10*6/uL 4.35-5.85 Venous blood hemoglobin measurement (mass/volume) 6.6 g/dL 13.3-17.7 Blood hematocrit (volume fraction) 24 % 40-54 Automated erythrocyte mean corpuscular volume 71 [foz_us] 80-99 Automated erythrocyte mean corpuscular hemoglobin (mass per erythrocyte) 19 pg 25-34 Automated erythrocyte mean corpuscular hemoglobin concentration measurement ( mass/volume) 27 g/dL 32-36 Automated erythrocyte distribution width ratio 23.0 % 10.0-14.5 Automated blood platelet count (count/volume) 193 10*3/uL 130-400 Automated blood platelet mean volume measurement 9.9 [foz_us] 7.4-10.4 Automated blood neutrophils/100 leukocytes 67 % 42-75 Automated blood lymphocytes/100 leukocytes 21 % 12-44 Blood monocytes/100 leukocytes 9 % 0-12 Automated blood eosinophils/100 leukocytes 3 % 0-10 Automated blood basophils/100 leukocytes 1 % 0-10 Blood neutrophils automated count (number/volume) 3.9 10*3 1.8-7.8 Blood lymphocytes automated count (number/volume) 1.2 10*3 1.0-4.0 Blood monocytes automated count (number/volume) 0.5 10*3 0.0-1.0 Automated eosinophil count 0.2 10*3/uL 0.0-0.3 Automated blood basophil count (count/volume) 0.0 10*3/uL 0.0-0.1 Whole blood basic metabolic panel - 09/17/17 04:35 Serum or plasma sodium measurement (moles/volume) 138 mmol/L 135-145 Serum or plasma potassium measurement (moles/volume) 3.8 mmol/L 3.6-5.0 Serum or plasma chloride measurement (moles/volume) 104 mmol/L 98-107 Carbon dioxide 24 mmol/L 21-32 Serum or plasma anion gap determination (moles/volume) 10 mmol/L 5-14 Serum or plasma urea nitrogen measurement (mass/volume) 12 mg/dL 7-18 Serum or plasma creatinine measurement (mass/volume) 0.90 mg/dL 0.60-1.30 Serum or plasma urea nitrogen/creatinine mass ratio 13 NRG Serum or plasma creatinine measurement with calculation of estimated glomerular filtration rate > NRG Serum or plasma glucose measurement (mass/volume) 94 mg/dL 70-105 Serum or plasma calcium measurement (mass/volume) 8.4 mg/dL 8.5-10.1 PT panel in platelet poor plasma by coagulation assay - 09/17/17 04:35 Prothrombin time (PT) in platelet poor plasma by coagulation assay 16.2 s 12.2-14.7 INR in platelet poor plasma or blood by coagulation assay 1.3 0.8-1.4 Stool occult blood screen - 09/17/17 10:00 Stool gastrointestinal hemoglobin detection NEGATIVE NEGATIVE Complete blood count (CBC) with automated white blood cell (WBC) differential - 09/18/17 06:30 Blood leukocytes automated count (number/volume) 5.2 10*3/uL 4.3-11.0 Blood erythrocytes automated count (number/volume) 3.55 10*6/uL 4.35-5.85 Venous blood hemoglobin measurement (mass/volume) 7.2 g/dL 13.3-17.7 Blood hematocrit (volume fraction) 26 % 40-54 Automated erythrocyte mean corpuscular volume 73 [foz_us] 80-99 Automated erythrocyte mean corpuscular hemoglobin (mass per erythrocyte) 20 pg 25-34 Automated erythrocyte mean corpuscular hemoglobin concentration measurement ( mass/volume) 28 g/dL 32-36 Automated erythrocyte distribution width ratio 23.5 % 10.0-14.5 Automated blood platelet count (count/volume) 175 10*3/uL 130-400 Automated blood platelet mean volume measurement 9.8 [foz_us] 7.4-10.4 Automated blood neutrophils/100 leukocytes 67 % 42-75 Automated blood lymphocytes/100 leukocytes 17 % 12-44 Blood monocytes/100 leukocytes 10 % 0-12 Automated blood eosinophils/100 leukocytes 5 % 0-10 Automated blood basophils/100 leukocytes 0 % 0-10 Blood neutrophils automated count (number/volume) 3.5 10*3 1.8-7.8 Blood lymphocytes automated count (number/volume) 0.9 10*3 1.0-4.0 Blood monocytes automated count (number/volume) 0.5 10*3 0.0-1.0 Automated eosinophil count 0.3 10*3/uL 0.0-0.3 Automated blood basophil count (count/volume) 0.0 10*3/uL 0.0-0.1 Whole blood basic metabolic panel - 09/18/17 06:30 Serum or plasma sodium measurement (moles/volume) 139 mmol/L 135-145 Serum or plasma potassium measurement (moles/volume) 3.5 mmol/L 3.6-5.0 Serum or plasma chloride measurement (moles/volume) 103 mmol/L 98-107 Carbon dioxide 28 mmol/L 21-32 Serum or plasma anion gap determination (moles/volume) 8 mmol/L 5-14 Serum or plasma urea nitrogen measurement (mass/volume) 10 mg/dL 7-18 Serum or plasma creatinine measurement (mass/volume) 0.86 mg/dL 0.60-1.30 Serum or plasma urea nitrogen/creatinine mass ratio 12 NRG Serum or plasma creatinine measurement with calculation of estimated glomerular filtration rate > NRG Serum or plasma glucose measurement (mass/volume) 93 mg/dL 70-105 Serum or plasma calcium measurement (mass/volume) 8.3 mg/dL 8.5-10.1 Encounters ACCT No. Visit Date/Time Discharge Status Pt. Type Provider Facility Loc./Unit Complaint [id number] 04/18/2014 13:38:37 04/18/2014 23:59:59 CLS Outpatient Tommy Leos [id number] 01/14/2015 21:06:02 ACT Document Registration [id number] 05/06/2017 10:51:00 05/06/2017 23:59:00 DIS Outpatient Mango Ness [id number] 11/05/2016 10:00:00 11/05/2016 23:59:00 DIS Outpatient Mango Ness [id number] 05/04/2016 10:53:00 05/04/2016 23:59:00 DIS Outpatient Mango Ness [id number] 04/05/2016 11:26:00 04/05/2016 23:59:00 DIS Outpatient Kristian Randle [id number] 09/16/2017 16:10:00 09/18/2017 16:00:00 DIS Inpatient CHIQUITA PADILLA, SALLIE Bello [facility] 4TH FLUID OVERLOAD, ANEMIA [id number] 09/16/2017 12:05:00 09/16/2017 23:59:59 CLS Outpatient BRITTANY PADILLA, NAZ Morel [facility] CARD HTN [id number] 07/13/2017 11:03:00 07/13/2017 11:30:00 DIS Outpatient RENATE CARUSO MD [facility] SLEEP G47.33 [id number] 05/24/2017 09:00:00 05/24/2017 23:59:59 CLS Preadmit NAZ SOTO MD [facility] CARD HTN [id number] 12/29/2016 15:02:00 12/29/2016 23:59:59 CLS Preadmit NAZ SOTO MD [facility] RAD HTN [id number] 01/14/2015 07:31:00 01/14/2015 23:59:59 CLS Outpatient NAZ SOTO MD [facility] CARD HLP,TIA,HTN [id number] 11/01/2014 13:30:00 11/01/2014 23:59:59 CLS Outpatient NAZ SOTO MD [facility] CARD CAD,TIA,HTN [id number] 06/07/2014 10:15:00 06/07/2014 23:59:59 CLS Outpatient GINI BROWN MD [facility] RAD NEUROPATHY [id number] 02/05/2014 14:20:00 02/05/2014 23:59:59 CLS Outpatient TIP WOLFF [facility] LAB HYPERLIPADEMIA [id number] 06/01/2013 17:30:00 06/02/2013 18:00:00 DIS Inpatient LILO TIM DO [facility] CSD TIA,HYPERTENSION [id number] 06/07/2014 11:18:00 Document Registration [id number] 10/20/2011 12:44:00 Document Registration [id number] 09/02/2011 11:29:00 Document Registration [id number] 08/28/2011 08:39:00 Document Registration [id number] 06/03/2011 06:00:00 Document Registration [id number] 05/29/2011 12:04:00 Document Registration [id number] 05/07/2010 10:14:00 Document Registration [id number] 05/06/2010 15:15:00 Document Registration
[2017-09-21] MEDS ORDERED: LACTATED RINGERS 1,000 ML IV ONE (10:44)
[2017-09-21] MEDS ORDERED: LACTATED RINGERS 1,000 ML IV STA (10:45)
[2017-09-21] MEDS ORDERED: MULT1CAP27 PO (11:02)
[2017-09-21 11:13] VITALS: BP 146/76
--- NOTE | 2017-09-21 11:25 | Progress Note-Pre Operative ---
Pre-Operative Progress Note H&P Reviewed The H&P was reviewed, patient examined and no changes noted. Date Seen by Provider: September 21, 2017 Time Seen by Provider: 11:25 Date H&P Reviewed: September 21, 2017 Time H&P Reviewed: 11:25 Pre-Operative Diagnosis: anemia, occult + stool RAQUEL LEAL DO September 21, 2017 11:25
[2017-09-21] MEDS ORDERED: MIDAZOLAM 2 MG/2 ML (VERSED) VIAL ONE (11:33)
[2017-09-21] MEDS ORDERED: PROPOFOL INJECTION 50 ML IV ONE (11:33)
[2017-09-21 12:30] VITALS: BP 136/72
[2017-09-21] MEDS ORDERED: HURRICAINE EXT TUBE (BENZOCAINE) XX ONE (12:30)
[2017-09-21 13:05] VITALS: BP 125/79
[2017-09-21 13:07] VITALS: BP 125/79
--- NOTE | 2017-09-21 14:07 | Progress Note-Post Operative ---
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
--- NOTE | 2017-09-21 14:08 | Discharge Inst-Simple/Standard ---
Discharge Inst-Standard Patient Instructions/Follow Up Plan of Care/Instructions/FU: 1 week Suhail Activity as Tolerated: Yes Discharge Diet: Regular Diet RAQUEL LEAL DO September 21, 2017 14:08
--- NOTE | 2017-09-22 01:38 | OPERATIVE REPORT ---
DATE OF SERVICE: 09/21/2017 PREOPERATIVE DIAGNOSIS: Anemia, occult positive stool. POSTOPERATIVE DIAGNOSIS: Hiatal hernia, normal colon. PROCEDURES: EGD and colonoscopy. SURGEON: Raquel Jang DO. ANESTHESIA: Per EMPLOYMENT SUPERVISOR. ESTIMATED BLOOD LOSS: None. COMPLICATIONS: None. INDICATIONS: The patient is an 81-year-old male, who was admitted for severe anemia. He was explained the risks and benefits of having EGD and colonoscopy performed. He understands the risks and benefits of procedure and wished to proceed with procedure. Consent was signed on the chart. DESCRIPTION OF PROCEDURE: The patient was taken to the endoscopy suite and placed in left lateral recumbent position. Timeout was performed. Scope was inserted in the mouth, down to the esophagus, stomach and into the duodenum. There are no polyps, masses or ulcerations within the duodenum. Scope was slowly retracted back into the stomach, where it was further insufflated. No polyps, masses or ulcerations or erythematous changes. The scope was retroflexed noting a small hiatal hernia, no other pathology noted. The scope was returned to its normal position, slowly withdrawn to the distal esophagus noting no other pathology and slowly retracted; it was completely removed, noting no other pathology. Digital rectal exam was performed. There were some slight internal hemorrhoids. No polyps, masses or ulcerations. Scope inserted in the rectum and advanced all the way to the cecum with minimal difficulty. The terminal ileum was intubated without any visualization of any abnormality. Scope was slowly retracted back into the cecum. There were no polyps, mass or ulcerations. Prep was adequate. Scope was slowly retracted back. There were no polyps, mass or ulcerations to the cecum, ascending, transverse, descending and sigmoid colon. Once in the rectum, scope was also retroflexed noting no other pathology. Scope was returned to its normal position, slowly withdrawn until completely removed. RECOMMENDATIONS: The patient continued to be followed on his hemoglobin. We will also consider capsule endoscopy. We will continue on his Protonix at this time and continue to follow hemoglobin. Job ID: [id number] DocumentID: [id number] Dictated Date: 09/21/2017 14:08:06 Wood Finisher Date: 09/22/2017 01:37:40 Dictated By: RAQUEL JANG DO
== END 2017-09-21 13:15 | disposition home or self-care (01) ==
LOC: ENDO 10:36
PROVIDERS: ATTEND Surgery
DX: R19.5 Other fecal abnormalities (principal); K44.9 Diaphragmatic hernia without obstruction or gangrene; D64.9 Anemia, unspecified; I25.10 Atherosclerotic heart disease of native coronary artery without angina pectoris; G47.33 Obstructive sleep apnea (adult) (pediatric); Z79.82 Long term (current) use of aspirin; Z79.899 Other long term (current) drug therapy

== ENCOUNTER → 2017-11-03 | Outpatient (CLI) | payer MEDICARE, BC ==
[~2017-11-03] VITALS: Ht 170.2 cm; Wt 82.6 kg
[~2017-11-03] MED LIST changes: +CATHETER FLUSH 10 ML SYR IV SCH; +MULT1CAP27 PO; +REGADENOSON 0.4 MG/5 ML SYR (LEXISCAN) IV ONE
[2017-11-03 12:55] VITALS: BP 145/75
[2017-11-03 12:58] VITALS: BP 104/62
--- NOTE | 2017-11-04 00:13 | STRESS TEST ---
DATE OF SERVICE: 11/03/2017 LEXISCAN MYOVIEW STRESS TEST REPORT REFERRING PHYSICIAN: Dr. Mango Ness. Baseline heart rate is 79, baseline blood pressure 145/75. Baseline EKG is sinus rhythm with no ischemic changes. In summary, the patient was injected with 10.86 mCi of technetium-99 Myoview and the resting images were obtained. Then, the patient received 0.4 mg of Lexiscan followed by 31.0 mCi of technetium-99 Myoview. Throughout the test, there were no EKG changes. The resting and stress images were reviewed and compared in the short axis, horizontal long axis, and vertical long axis views. Review of the images showed typical male pattern with no significant ischemia or infarction. SSS is 1, SDS 1, TID value 0.98. On the gated images, the left ventricle appeared to be normal size with subtle hypokinesia at the inferior wall. Calculated ejection fraction 48%. CONCLUSION: 1. The patient tolerated Lexiscan well. 2. Diaphragmatic attenuation with typical male pattern with no significant ischemia or infarction on SPECT images. 3. Normal left ventricular size with subtle hypokinesia at the inferior wall. Calculated ejection fraction 48%. Job ID: [id number] DocumentID: [id number] Dictated Date: 11/03/2017 17:43:05 Composition Board Press Operator Date: 11/04/2017 00:13:12 Dictated By: NAZ SOTO MD
== END ==
LOC: CARD 11:16
PROVIDERS: ATTEND Internal Medicine Cardiovascular Disease
DX: I10 Essential (primary) hypertension (principal); E78.5 Hyperlipidemia, unspecified; G45.8 Other transient cerebral ischemic attacks and related syndromes
CPT/HCPCS: 78452; 93017

== ENCOUNTER → 2019-02-13 | Outpatient (CLI) | payer MEDICARE, BC ==
[~2019-02-13] MED LIST changes: -CATHETER FLUSH 10 ML SYR IV SCH; -REGADENOSON 0.4 MG/5 ML SYR (LEXISCAN) IV ONE
== END ==
LOC: CARD 08:40
PROVIDERS: ATTEND Internal Medicine Cardiovascular Disease
DX: I10 Essential (primary) hypertension (principal); E78.5 Hyperlipidemia, unspecified; G47.33 Obstructive sleep apnea (adult) (pediatric); G45.9 Transient cerebral ischemic attack, unspecified
CPT/HCPCS: 93306

== ENCOUNTER → 2019-02-13 | Outpatient (CLI) | payer MEDICARE, BC ==
[~2019-02-13] MED LIST changes: +CATHETER FLUSH 10 ML SYR IV PRN; +HOLD METFORMIN - RECEIVED CONTRAST 20 ML VIAL IV SCH; +IOHEXOL 350 MG/ML 100 ML (OMNIPAQUE 350) VIAL IV ONE; +NS 100 ML (IVPB) BAG IV ONE
[2019-02-13 12:12] LABS: BUN/CREATININE RATIO 11; CREATININE SERUM 0.85 MG/DL (0.60-1.30); GFR ESTIMATED > 60
--- NOTE | 2019-02-13 13:47 | Diagnostic Imaging Report ---
CTA of the neck. Indication: History of carotid surgery and carotid stenosis. Findings: Contiguous axial sections were taken from the midportion of skull to lung apices on the administration of intravenous contrast. Sagittal and coronal reconstructed images were also obtained. MIP images of the carotid and vertebral systems were performed as well. The previous CTA head and neck exam of 06/02/2013 noted a 40 to 50% stenosis from mixed plaque formation along the origin of the right subclavian artery. That finding is again evident on this study and may be somewhat greater, the stenosis in this area is 60-70% range. Furthermore, there does appear to be a calcified bulge of the vessel along the inferior margin of the right subclavian artery just proximal to the stenosis. This measures 8.7 x 11.9 mm. In retrospect, this finding was also present on prior exam which measured 4.93 mm. This does suggest a small aneurysm. In addition to the greater stenosis of the proximal right subclavian artery, the arterial blood flow in the right vertebral artery does seem diminished when compared to the prior exam. The vessel is still opacified, but the vessel is diminutive and the midportion of the right vertebral artery is not well visualized, whether this is secondary to slow flow or thrombus is not certain. The left vertebral artery is dominant and widely patent. There is a small amount of atherosclerotic plaque involving the carotid bifurcation on the right. There is no hemodynamically significant stenosis identified. There is no sign of a hemodynamically significant stenosis in the left carotid system either. The intracranial circulation, where visualized is unremarkable. There is no mass or adenopathy involving the neck. The parotid, submandibular and thyroid gland are generally unremarkable. The degenerative disc disease involving the cervical spine noted on the prior study does not appear to have progressed significantly. There is spinal stenosis and neural foraminal narrowing at every level from C3-4 to C7-T1. There is no fracture or acute bony abnormality appreciated. There are chronic changes involving both lung apices. 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 2. The arterial blood flow in the right vertebral artery is diminished when compared to prior exam. The left vertebral artery is dominant however, and patent. 3. There is no sign of a hemodynamically significant stenosis of the common and internal carotid arteries. 4. There is no acute abnormality of the neck. Dictated by: Dictated on workstation # [id number]
== END ==
LOC: RAD 11:44
PROVIDERS: ATTEND Internal Medicine Cardiovascular Disease
DX: I65.23 Occlusion and stenosis of bilateral carotid arteries (principal); I77.1 Stricture of artery; Z98.890 Other specified postprocedural states
CPT/HCPCS: 36415; 70498; 82565; 84520

== ENCOUNTER 2019-11-10 17:21 | Emergency (ER) | payer MEDICARE, BC ==
[~2019-11-10] VITALS: Ht 170 cm; Wt 81.0 kg
[~2019-11-10 17:21] MED LIST changes: -CATHETER FLUSH 10 ML SYR IV PRN; -HOLD METFORMIN - RECEIVED CONTRAST 20 ML VIAL IV SCH; -IOHEXOL 350 MG/ML 100 ML (OMNIPAQUE 350) VIAL IV ONE; -NS 100 ML (IVPB) BAG IV ONE
--- NOTE | 2019-11-10 17:28 | ED Lower Extremity ---
General Stated Complaint: FALL Source: patient, EMS (BILLY ALDANA DO) History of Present Illness Date Seen by Provider: Nov 10, 2019 Time Seen by Provider: 17:22 Initial Comments PT ARRIVES VIA EMS FROM HOME PT WAS MOVING A LOG, AND A BUNCH OF HONEY BEES FLEW OUT, AND HE WAS RUNNING IN RUBBER BOOTS, AND FELL, LANDING DIRECTLY ON HIS RIGHT HIP, ONTO GROUND DID NOT HIT HEAD AND NO LOSS OF CONSCIOUSNESS NO NECK OR BACK PAIN NO OTHER PAIN OR INJURY, BESIDES RIGHT HIP NO PRIOR INJURY TO THIS HIP PT DID GET STUNG X 2--ONE ON NOSE AND FOREHEAD, BUT THESE AREAS ARE NOT RED OR SWOLLEN OR PAINFUL AT THIS TIME NO DIFFICULTY BREATHING OR SWELLING ANYWHERE GRANDSON WAS WITH HIM AND CALLED EMS. PCP: DR WILEY (BILLY ALDANA DO) Initial Comments Last oral intake is he drank some water around 4:30 in the afternoon. Before that was noon. Echocardiogram [address] Ibrahim shows EF of 55-65% with grade 1 diastolic dysfunction. History of hypertension, hyperlipidemia and TIA. Patient was unable to tolerate Aggrenox. Continues on aspirin daily. History of carotid endarterectomy bilateral by Dr. Crowe. Last ultrasound was done December 2016 showing mild bilateral nonobstructive disease. Unable to tolerate lisinopril secondary to cough. (SKYE PIZANO) Allergies and Home Medications Allergies Coded Allergies: NKANo Known Allergies (Verified Allergy, Unknown, 08/31/05) Home Medications Atorvastatin Calcium 20 Mg Tablet, 20 MG PO HS, (Reported) Furosemide 20 Mg Tablet, 20 MG PO DAILY Prescribed by: SALLIE PORRAS on 09/18/17918 Multivitamin 1 Each Capsule, 1 EACH PO DAILY, (Reported) Pantoprazole Sodium 40 Mg Tablet.dr, 40 MG PO DAILY Prescribed by: SALLIE PORRAS on 09/18/17918 Patient Home Medication List Home Medication List Reviewed: Yes (SKYE PIZANO) Review of Systems Constitutional: no symptoms reported EENTM: see HPI Respiratory: no symptoms reported; No short of breath Cardiovascular: no symptoms reported Gastrointestinal: no symptoms reported Genitourinary: no symptoms reported Musculoskeletal: see HPI Skin: see HPI Psychiatric/Neurological: No Symptoms Reported (BILLY ALDANA DO) Past Urxvyac-Pgehdh-Oajmjf Hx Past Med/Social Hx: Reviewed and Corrections made (BILLY ALDANA DO) Patient Social History Recent Hopitalizations: Yes (BILLY ALDANA DO) Alcohol Use: Denies Use Recreational Drug Use: No (SKYE PIZANO) Immunizations Up To Date Tetanus Booster (TDap): Unknown PED Vaccines UTD: Yes Date of Pneumonia Vaccine: May 17, 2009 Date of Influenza Vaccine: Mar 17, 2013 (BILLY ALDANA DO) Seasonal Allergies Seasonal Allergies: No (BILLY ALDANA DO) Past Medical History Surgeries: Yes (BILAT CAROTIDGurwinder Alvarez; KNEE SCOPE;EGD/COLONOSCOPY) Appendectomy, Orthopedic, Tonsillectomy, Vascular Surgery Respiratory: No Sleep Apnea Currently Using CPAP: Yes Currently Using BIPAP: No Cardiac: Yes (past HTN; BILATERAL CAROTID ENDARTERECTOMY) High Cholesterol, Hypertension, Peripheral Vascular Neurological: Yes TIA Reproductive Disorders: No Genitourinary: Yes Kidney Stones Gastrointestinal: No Musculoskeletal: Yes (KNEE SCOPE) Arthritis Endocrine: No HEENT: No Cancer: No Psychosocial: Yes Integumentary: No Blood Disorders: No Adverse Reaction/Blood Tranf: No (BILLY ALDANA DO) Family Medical History Alcoholism 03 FATHER 09 BROTHER Cancer 03 MOTHER Cataract 03 FATHER 03 MOTHER 09 BROTHER 09 SISTER 09 SISTER Chest pain 03 FATHER Family history: Arthritis 03 FATHER Family history: Glaucoma 03 MOTHER Heart disease 03 FATHER Hypercholesterolemia 09 BROTHER Kidney disease 03 FATHER No Family History of: Abdominal aortic aneurysm Maple's disease Aphasia Cancer of colon Congenital heart disease Congestive heart failure Cystic fibrosis Dementia Dysphagia Family history: Allergy Family history: Alzheimer's disease Family history: Asthma Family history: Breast disease Family history: Cardiovascular disease Family history: Coronary thrombosis Family history: Diabetes mellitus Family history: Gastrointestinal disease Family history: Hypertension Family history: Osteoporosis Family history: Thyroid disorder Headache Hearing loss Hereditary disease History of - anemia History of - disorder History of - respiratory disease History of drug abuse Human immunodeficiency virus (HIV) seropositivity Infertile Malignant neoplasm of lung Myocardial infarction Parkinson's disease Prostate cancer Psychotic disorder Seizure disorder Stroke Tuberculosis Visual impairment No Pertinent Family Hx (BILLY ALDANA DO) Physical Exam Vital Signs Capillary Refill : (BILLY ALDANA DO) Height, Weight, BMI Height: 5'7.00" Weight: 182lbs. 0.0oz. 82.473207bs; 28.5 BMI Method:Estimated General Appearance: WD/WN, no apparent distress HEENT: PERRL/EOMI, pharynx normal, other (MILD ERYTHEMA AND SWELLING AND INDURATION TO RIGHT LATERAL NARE. UNABLE TO IDENTIFY A STING SITE ANYWHERE ELSE) Neck: full range of motion, normal inspection Cardiovascular: normal peripheral pulses, regular rate, rhythm, no JVD, no murmur Respiratory: chest non-tender, normal breath sounds, no respiratory distress, no accessory muscle use Gastrointestinal: normal bowel sounds, non tender, soft, no organomegaly Back: normal inspection, no CVA tenderness, no vertebral tenderness Hips: left hip normal inspection; right hip bone tenderness, right hip limited range of motion, right hip soft tissue tenderness, right hip other (LATERAL ASPECT OF RIGHT HIP TENDER. DISTAL MOTOR/SENSORY/VASCULAR INTACT. ) Legs: bilateral leg normal inspection Knees: bilateral knee normal inspection Ankles: bilateral ankle normal inspection Feet: bilateral foot normal inspection Neurologic/Tendon: normal sensation, normal motor functions, normal tendon functions Neurologic/Psychiatric: house nurse II-XII nml as tested, no motor/sensory deficits, alert, normal mood/affect, oriented x 3 Skin: normal color, warm/dry (KATYA,BILLY K DO) Progress/Results/Core Measures Results/Orders Lab Results Laboratory Tests Test 11/10/19 17:40 11/10/19 18:10 Range/Units White Blood Count 9.3 4.3-11.0 10^3/uL Red Blood Count 4.77 4.35-5.85 10^6/uL Hemoglobin 15.6 13.3-17.7 G/DL Hematocrit 46 40-54 % Mean Corpuscular Volume 97 80-99 FL Mean Corpuscular Hemoglobin 33 25-34 PG Mean Corpuscular Hemoglobin Concent 34 32-36 G/DL Red Cell Distribution Width 13.0 10.0-14.5 % Platelet Count 146 130-400 10^3/uL Mean Platelet Volume 10.9 H 7.4-10.4 FL Neutrophils (%) (Auto) 83 H 42-75 % Lymphocytes (%) (Auto) 9 L 12-44 % Monocytes (%) (Auto) 6 0-12 % Eosinophils (%) (Auto) 2 0-10 % Basophils (%) (Auto) 0 0-10 % Neutrophils # (Auto) 7.7 1.8-7.8 X 10^3 Lymphocytes # (Auto) 0.8 L 1.0-4.0 X 10^3 Monocytes # (Auto) 0.6 0.0-1.0 X 10^3 Eosinophils # (Auto) 0.2 0.0-0.3 10^3/uL Basophils # (Auto) 0.0 0.0-0.1 10^3/uL Sodium Level 138 135-145 MMOL/L Potassium Level 4.8 3.6-5.0 MMOL/L Chloride Level 104 98-107 MMOL/L Carbon Dioxide Level 24 21-32 MMOL/L Anion Gap 10 5-14 MMOL/L Blood Urea Nitrogen 11 7-18 MG/DL Creatinine 0.96 0.60-1.30 MG/DL Estimat Glomerular Filtration Rate > 60 BUN/Creatinine Ratio 11 Glucose Level 106 H 70-105 MG/DL Calcium Level 9.2 8.5-10.1 MG/DL Corrected Calcium 9.3 8.5-10.1 MG/DL Total Bilirubin 0.7 0.1-1.0 MG/DL Aspartate Amino Transf (AST/SGOT) 34 5-34 U/L Alanine Aminotransferase (ALT/SGPT) 28 0-55 U/L Alkaline Phosphatase 104 40-136 U/L Total Protein 6.9 6.4-8.2 GM/DL Albumin 3.9 3.2-4.5 GM/DL Urine Color YELLOW Urine Clarity CLEAR Urine pH 6.5 5-9 Urine Specific [place] 1.020 1.016-1.022 Urine Protein TRACE H NEGATIVE Urine Glucose (UA) NEGATIVE NEGATIVE Urine Ketones NEGATIVE NEGATIVE Urine Nitrite NEGATIVE NEGATIVE Urine Bilirubin NEGATIVE NEGATIVE Urine Urobilinogen 0.2 < = 1.0 MG/DL Urine Leukocyte Esterase TRACE H NEGATIVE Urine RBC (Auto) 3+ H NEGATIVE Urine RBC 10-25 H /HPF Urine WBC RARE /HPF Urine Squamous Epithelial Cells NONE /HPF Urine Crystals NONE /LPF Urine Bacteria NEGATIVE /HPF Urine Casts NONE /LPF Urine Mucus NEGATIVE /LPF Urine Culture Indicated NO (SKYE PIZANO) My Orders Orders - SKYE PIZANO Fentanyl Injection (Sublimaze Injection (11/10/19 18:15) Chest 1 View, Ap/Pa Only (11/10/19 18:07) Catheter(Urinary) Insert & Ass 03,15 (11/10/19 18:07) Cbc With Automated Diff (11/10/19 18:07) Comprehensive Metabolic Panel (11/10/19 18:07) Ua Culture If Indicated (11/10/19 18:07) Ed Iv/Invasive Line Start (11/10/19 18:07) Ns Iv 1000 Ml (Sodium Chloride 0.9%) (11/10/19 18:07) Fentanyl Injection (Sublimaze Injection (11/10/19 18:45) O2 (11/10/19 18:42) (SKYE PIZANO) Medications Given in ED Current Medications Medications Dose Ordered Sig/Hayley Route Start Time Stop Time Status Last Admin Dose Admin Fentanyl Citrate 50 mcg ONCE ONCE IVP 11/10/19 18:15 11/10/19 18:16 DC 11/10/19 18:16 50 MCG Fentanyl Citrate 50 mcg ONCE ONCE IVP 11/10/19 18:45 11/10/19 18:46 DC 11/10/19 19:00 50 MCG (SKYE PIZANO) Progress Progress Note : Progress Note 1800--CARE TURNED OVER TO DR. PIZANO, XRAYS PENDING. PT HAS DECLINED PAIN MEDICATION AT THIS TIME. (BILLY ALDANA DO) Progress Note #1: Time: 18:55 Progress Note Patient received 50 mcg of fentanyl which he said he did not receive much relief from. His oxygen sats did get down to 9194%. Put him on 2 L by nasal cannula. EKG unremarkable. Given a second dose of 50 macro grams of fentanyl. Progress Note #2: Time: 19:10 Progress Note Patient reports no relief of pain from either dose of fentanyl. Pain 9 out of 10. Ordered half a milligram of Dilaudid. EMS has been paged out. (SKYE PIZANO) Initial ECG Impression Date: Nov 10, 2019 Initial ECG Impression Time: 18:50 Initial ECG Rate: 79 Initial ECG Rhythm: Normal Sinus Initial ECG Intervals: Normal Initial ECG Impression: Normal Initial ECG Comparisson: Unchanged Comment Normal sinus rhythm with no clinically relevant ST elevation or depression. (SKYE PIZANO) Diagnostic Imaging Diagonstic Imaging: Xray Plain Films/CT/US/NM/MRI: hip (r) Comments [facility], [place] NAME: NICHOLAS FRANCOIS [facility] REC#: [id number] PT STATUS: REG ER : 1935 PHYSICIAN: BILLY ALDANA DO ADMIT DATE: 11/10/19/ER Draft Date of Exam:11/10/19 PELVIS WITH RIGHT HIP 2-3VIEWS INDICATION: Right hip pain post fall. TECHNIQUE: AP pelvis along with 2 views right hip, 05:59 p.m. CORRELATION STUDY: None. FINDINGS: The pelvis demonstrates no evidence for acute fracture. The pectineal lines and obturator rings are maintained. Pubic symphysis and SI joints are unremarkable. Prominent degenerative changes about the visualized lower lumbar spine with prominent osteophytes along the right aspect at L4-L5 and L5-S1 levels. Vascular calcification is present. There is presence of relatively nondisplaced intertrochanteric femur fracture. Femoral head acetabular relationship is maintained. IMPRESSION: Relatively nondisplaced intertrochanteric fracture of the proximal right femur. Dictated on workstation # [id number] Dict: 11/10/19 1802 Trans: 11/10/191806 AS6 [id number] Interpreted by: PINO CORTES DO Electronically signed by: Reviewed: Reviewed by Me Diagonstic Imaging: Xray Plain Films/CT/US/NM/MRI: chest Comments No acute cardiopulmonary processes. Pleural effusion seen on previous x-ray has resolved. Reviewed: Reviewed by Me (SKYE PIZANO) Departure Impression Primary Impression: Fall Qualified Codes: W19.XXXA - Unspecified fall, initial encounter Additional Impression: Closed right hip fracture Qualified Codes: S72.001A - Fracture of unspecified part of neck of right femur, initial encounter for closed fracture Disposition: XF SHT-TRM HOSP Condition: Stable Transfer Transfer Reason: Exceeds level of care (. No orthopedic coverage locally) Time Spoke to Accepting Phy: 18:30 Transfer Progress Notes Discussed the case with Dr. Teri Roman in the [place] ER and she accepts the patient in transfer for hip fracture. Transfer Time: 19:25 [place] [place] Method of Transfer: EMS (SKYE PIZANO) Departure-Patient Inst. Referrals: ERICKA ROMO DO (PCP/Family) Primary Care Physician BILLY ALDANA DO Nov 10, 2019 17:28 SKYE PIZANO 26, 2020 18:36
[2019-11-10] MEDS ORDERED: fentaNYL INJECTION 100 MCG/2 ML AMP ONE (18:06)
[2019-11-10] MEDS ORDERED: NS IV 1000 ML 1,000 ML IV SCH (18:07)
--- NOTE | 2019-11-10 18:08 | Diagnostic Imaging Report ---
INDICATION: Right hip pain post fall. TECHNIQUE: AP pelvis along with 2 views right hip, 05:59 p.m. CORRELATION STUDY: None. FINDINGS: The pelvis demonstrates no evidence for acute fracture. The pectineal lines and obturator rings are maintained. Pubic symphysis and SI joints are unremarkable. Prominent degenerative changes about the visualized lower lumbar spine with prominent osteophytes along the right aspect at L4-L5 and L5-S1 levels. Vascular calcification is present. There is presence of relatively nondisplaced intertrochanteric femur fracture. Femoral head acetabular relationship is maintained. IMPRESSION: Relatively nondisplaced intertrochanteric fracture of the proximal right femur. Dictated by: Dictated on workstation # [id number]
[2019-11-10 18:15] LABS: BASOPHILS % (AUTO) 0 % (0-10); EOSINOPHILS # (AUTO) 0.2 10^3/uL (0.0-0.3); EOSINOPHILS % (AUTO) 2 % (0-10); HEMATOCRIT 46 % (40-54); HEMOGLOBIN 15.6 G/DL (13.3-17.7); LYMPHOCYTES # (AUTO) 0.8 X 10^3 (1.0-4.0); LYMPHOCYTES % (AUTO) 9 % (12-44); MEAN CORPUSCULAR HEMOGLOBIN 33 PG (25-34); MEAN CORPUSCULAR HGB CONC 34 G/DL (32-36); MEAN CORPUSCULAR VOLUME 97 FL (80-99); MEAN PLATELET VOLUME 10.9 FL (7.4-10.4); MONOCYTES # (AUTO) 0.6 X 10^3 (0.0-1.0); MONOCYTES % (AUTO) 6 % (0-12); NEUTROPHILS # (AUTO) 7.7 X 10^3 (1.8-7.8); NEUTROPHILS % (AUTO) 83 % (42-75); PLATELET COUNT 146 10^3/uL (130-400); WHITE BLOOD COUNT 9.3 10^3/uL (4.3-11.0)
[2019-11-10] MEDS ORDERED: fentaNYL INJECTION 100 MCG/2 ML AMP IVP ONE ×2 (18:15→18:45)
[2019-11-10 18:19] LABS: ALBUMIN 3.9 GM/DL (3.2-4.5); CHLORIDE 104 MMOL/L (98-107); POTASSIUM 4.8 MMOL/L (3.6-5.0); SODIUM 138 MMOL/L (135-145)
[2019-11-10 18:20] LABS: BILIRUBIN,URINE NEGATIVE (NEGATIVE); CLARITY,URINE CLEAR; COLOR,URINE YELLOW; GLUCOSE, URINE (UA) NEGATIVE (NEGATIVE); KETONES,URINE NEGATIVE (NEGATIVE); LEUKOCYTE ESTERASE ,URINE TRACE (NEGATIVE); NITRITE,URINE NEGATIVE (NEGATIVE); PH,URINE 6.5 (5-9); PROTEIN,URINE TRACE (NEGATIVE)
[2019-11-10 18:20] LABS: CALCIUM 9.2 MG/DL (8.5-10.1)
[2019-11-10 18:21] LABS: GLUCOSE 106 MG/DL (70-105); TOTAL PROTEIN 6.9 GM/DL (6.4-8.2)
[2019-11-10 18:22] LABS: CARBON DIOXIDE 24 MMOL/L (21-32)
[2019-11-10 18:23] LABS: BILIRUBIN,TOTAL 0.7 MG/DL (0.1-1.0)
[2019-11-10 18:25] LABS: ALKALINE PHOSPHATASE 104 U/L (40-136); CREATININE SERUM 0.96 MG/DL (0.60-1.30); GFR ESTIMATED > 60
[2019-11-10 18:26] LABS: BUN/CREATININE RATIO 11
[2019-11-10 18:26] LABS: BACTERIA,URINE NEGATIVE /HPF; WBC,URINE RARE /HPF
[2019-11-10 18:28] LABS: ALANINE AMINOTRANSFERASE 28 U/L (0-55)
--- NOTE | 2019-11-10 18:40 | NUR ---
REPORT GIVEN TO ED TRIAGE NURSE.
[2019-11-10] MEDS ORDERED: HYDROmorphone 2 MG/ML VIAL (DILAUDID) ONE (19:09)
--- NOTE | 2019-11-10 19:12 | Diagnostic Imaging Report ---
INDICATION: Hip fracture post fall. TECHNIQUE: Single-view chest at 07:10 p.m. CORRELATION STUDY: 09/16/2017. FINDINGS: Heart size is within normal limits. Vasculature overall within normal limits. Lung storm are generally clear without definitive consolidating infiltrate. Chronic changes are suggested. IMPRESSION: 1. Chronic-appearing changes about the lung parenchyma and chest. Negative for acute abnormality. Dictated by: Dictated on workstation # [id number]
[2019-11-10 19:15] VITALS: BP 158/97
[2019-11-10] MEDS ORDERED: HYDROmorphone 2 MG/ML VIAL (DILAUDID) IV ONE (19:15)
== END 2019-11-10 19:23 | disposition short-term general hospital (02) ==
LOC: EDUNIT# 17:21 → ER 17:25
DX: S72.144A Nondisplaced intertrochanteric fracture of right femur, initial encounter for closed fracture (principal); I10 Essential (primary) hypertension; E78.00 Pure hypercholesterolemia, unspecified; Z79.82 Long term (current) use of aspirin; Z86.73 Personal history of transient ischemic attack (TIA), and cerebral infarction without residual deficits; Z82.49 Family history of ischemic heart disease and other diseases of the circulatory system; W18.39XA Other fall on same level, initial encounter; Y93.02 Activity, running
CPT/HCPCS: 36415; 51702; 71045; 80053; 81000; 85025

== ENCOUNTER → 2020-11-04 | Outpatient (CLI) | payer BC, MEDICARE ==
--- NOTE | 2020-11-04 17:34 | Diagnostic Imaging Report ---
EXAMINATION: Whole body bone scan. INDICATION: Prostate cancer. TECHNIQUE: After intravenous administration of 26.7 mCi of technetium 99m MDP, delayed anterior and posterior whole body images were acquired. FINDINGS: There is physiologic distribution of the radiopharmaceutical throughout the axial and appendicular skeleton. There is degenerative activity demonstrated within the shoulders, knees, and feet. There is some linear activity associated with the patient's right intertrochanteric femur which is likely related to the patient's prior intertrochanteric fracture demonstrated in October 2019. There is no suspicious activity present to suggest active osseous metastatic disease. Both kidneys are visualized and there is activity within the urinary bladder. IMPRESSION: 1. No suspicious activity evident to suggest active osseous metastatic disease. 2. Degenerative activity within the shoulders, knees, and feet. 3. Linear activity within the proximal right femur is likely sequela of the patient's prior right intertrochanteric fracture. Dictated by: Dictated on workstation # [id number]
== END ==
LOC: CARD 12:00
PROVIDERS: ATTEND Urology
DX: C61 Malignant neoplasm of prostate (principal); M17.9 Osteoarthritis of knee, unspecified; M19.019 Primary osteoarthritis, unspecified shoulder; M19.079 Primary osteoarthritis, unspecified ankle and foot
CPT/HCPCS: 78306; A9503

== ENCOUNTER → 2022-03-12 | Outpatient (CLI) | payer MEDICARE ==
[~2022-03-12] VITALS: Wt 81.0 kg
[~2022-03-12] MED LIST changes: +INCLISIRAN (LEQVIO) 284 MG/1.5 ML SYRINGE SQ ONE
[2022-03-12 14:10] VITALS: BP 158/79
== END ==
LOC: SDC 13:16
PROVIDERS: ATTEND Internal Medicine Cardiovascular Disease
DX: Z51.81 Encounter for therapeutic drug level monitoring (principal)
CPT/HCPCS: 96372

== ENCOUNTER 2022-06-09 11:30 | Outpatient (RCR) | payer MEDICARE ==
[~2022-06-09 11:30] MED LIST changes: -INCLISIRAN (LEQVIO) 284 MG/1.5 ML SYRINGE SQ ONE
== END 2022-06-16 | disposition home or self-care (01) ==
LOC: ONC 11:30
PROVIDERS: ATTEND Internal Medicine Hematology & Oncology
DX: C61 Malignant neoplasm of prostate (principal); I10 Essential (primary) hypertension; E78.2 Mixed hyperlipidemia
CPT/HCPCS: 84153; G0463; 99204

== ENCOUNTER 2022-09-15 20:00 | Outpatient (RCR) | payer MEDICARE | END 2022-10-14 | disposition home or self-care (01) | LOC: ONC 20:00 | PROVIDERS: ATTEND Internal Medicine Hematology & Oncology | DX: C61 Malignant neoplasm of prostate (principal); I10 Essential (primary) hypertension; E78.2 Mixed hyperlipidemia | CPT/HCPCS: 84153 ==

== ENCOUNTER → 2022-10-30 | Outpatient (CLI) | payer MEDICARE | LOC: CARD 10:48 | PROVIDERS: ATTEND Internal Medicine Cardiovascular Disease | DX: I11.9 Hypertensive heart disease without heart failure (principal) | CPT/HCPCS: 93306 ==

== ENCOUNTER 2022-12-08 13:43 | Outpatient (RCR) | payer MEDICARE | END 2022-12-14 | disposition home or self-care (01) | LOC: ONC 13:43 | PROVIDERS: ATTEND Internal Medicine Hematology & Oncology | DX: C61 Malignant neoplasm of prostate (principal); I10 Essential (primary) hypertension; E78.2 Mixed hyperlipidemia | CPT/HCPCS: 36415; 84153 ==

== ENCOUNTER → 2023-01-13 | Outpatient (CLI) | payer MEDICARE ==
[~2023-01-13] MED LIST changes: +CATHETER FLUSH 10 ML SYR IVP PRN; +REGADENOSON 0.4 MG/5 ML SYR IV ONE
[2023-01-13 13:35] VITALS: BP 152/92
--- NOTE | 2023-01-13 15:47 | Cardiology Stress Test Report ---
Stress Test Report Date of Procedure/Referring: Date of Procedure: Jan 13, 2023 PCP Mango Ness DO Admitting Physician Admitting Physician: Attending Physician: Vince Ibrahim MD Indications: CP Baseline Heart Rate: 79 Baseline Blood Pressure: Blood Pressure Systolic: 152 Blood Pressure Diastolic: 92 Baseline Vitals Vital Signs Date Time Temp Pulse Resp B/P (MAP) Pulse Ox O2 Delivery O2 Flow Rate FiO2 01/13/23 13:35 79 152/92 (112) 98 Baseline EKG: Baseline EKG: NSR Summary After explaining the procedure to the patient, he signed a consent and then brought to the stress nuclear laboratory. Patient received 0.4 mg Lexiscan for stress test, ECG, heart rate and blood pressure were monitored continuously. Resting and stress dose of radio tracer were injected, imaging was acquired and reviewed in short axis, horizontal long axis and vertical long axis views. TID: 1.09 SSS: 2 SDS: 2 EF: 65 Patient tolerated Lexiscan well No ischemia or infarction noted on SPECT images Normal left ventricular size, ejection fraction 65% Copy Copies To 1: MANGO NESS BASHAR J MD Jan 13, 2023 15:47
== END ==
LOC: CARD 11:30
PROVIDERS: ATTEND Internal Medicine Cardiovascular Disease
DX: I10 Essential (primary) hypertension (principal); I25.10 Atherosclerotic heart disease of native coronary artery without angina pectoris
CPT/HCPCS: 78452; 93017; A9502

== ENCOUNTER 2023-03-17 13:37 | Outpatient (RCR) | payer MEDICARE | END 2023-04-15 | disposition home or self-care (01) | LOC: ONC 13:37 | PROVIDERS: ATTEND Internal Medicine Hematology & Oncology | DX: C61 Malignant neoplasm of prostate (principal); I10 Essential (primary) hypertension; E78.2 Mixed hyperlipidemia | CPT/HCPCS: 84153; G0463; 36415; 99214 ==

== ENCOUNTER → 2023-03-17 | Outpatient (CLI) | payer MEDICARE ==
[~2023-03-17] MED LIST changes: -CATHETER FLUSH 10 ML SYR IVP PRN; -REGADENOSON 0.4 MG/5 ML SYR IV ONE
[2023-03-17 14:44] LABS: BACTERIA,URINE TRACE /HPF; BILIRUBIN,URINE NEGATIVE (NEGATIVE); CLARITY,URINE CLEAR; COLOR,URINE YELLOW; GLUCOSE, URINE (UA) NEGATIVE (NEGATIVE); KETONES,URINE NEGATIVE (NEGATIVE); LEUKOCYTE ESTERASE ,URINE TRACE (NEGATIVE); NITRITE,URINE NEGATIVE (NEGATIVE); PROTEIN,URINE NEGATIVE (NEGATIVE); SQUAMOUS EPITHELIAL CELL,UR RARE /HPF
== END ==
LOC: LAB 14:08
PROVIDERS: ATTEND Family Medicine
DX: R31.9 Hematuria, unspecified (principal)
CPT/HCPCS: 81000